=== PATIENT | male | born 1980 | race Hispanic/Latino ===

== ENCOUNTER 2025-06-10 10:23 | Inpatient (IN) | payer SELFPAY ==
[~2025-06-10] VITALS: Ht 167.6 cm; Wt 99.0 kg
[2025-06-10 10:36] LABS: IMMATURE GRANULOCYTE ABSOLUTE 0.16 K/uL (0-1); NUCLEATED RED BLOOD CELLS 0.0 % (0.0-0.19); PLATELET COUNT (AUTO) 313 K/uL (130-400); RED BLOOD CELL COUNT(AUTO) 5.48 MIL/uL (4.50-6.20); RED CELL DISTRIBUTION WIDTH 13.2 % (11.0-15.5); WHITE BLOOD COUNT (AUTO) 23.2 K/uL (4.8-10.8)
[2025-06-10] MEDS: 0.9%NACL 1000ML 1,000 ML IV ONE ×2 (10:38→15:28)
--- NOTE | 2025-06-10 10:40 | EKG ---
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
[2025-06-10 10:49] LABS: CREATININE 1.2 mg/dL (0.5-1.3); GLOMERULAR FILTR. RATE CALC 76.0 mL/min (>90); GLUCOSE,RANDOM 229.0 mg/dL (70-105); SODIUM SERUM 134.0 mmol/L (136-145); UREA NITROGEN, BLOOD 12.0 mg/dL (7-18)
[2025-06-10 10:53] LABS: ASPARTATE AMINOTRANSFERASE 28.0 U/L (10-37); TOTAL PROTEIN, SERUM 8.4 g/dL (6.0-8.3)
[2025-06-10 10:56] LABS: INR 1.04 (0.85-1.15)
--- NOTE | 2025-06-10 12:11 | HMCIMG ---
EXAM: CR Chest, 1 View. CLINICAL HISTORY: cp COMPARISON: None provided. FINDINGS: LUNGS: There is no mass, infiltrate, or acute pulmonary abnormality. Mild bibasilar atelectasis. PLEURAL SPACES: No pleural effusion or pneumothorax. MEDIASTINUM: Cardiac size and mediastinal contours within normal limits. BONES: No aggressive appearing osseous lesion seen. IMPRESSION: No acute cardiopulmonary pathology is evident. /[place]
[2025-06-10 12:18] LABS: AMPHET/METH SCREEN,URINE NEGATIVE (NEGATIVE); BARBITURATE SCREEN, URINE NEGATIVE (NEGATIVE); CANNABINOID SCREEN,URINE NEGATIVE (NEGATIVE); COCAINE SCREEN,URINE NEGATIVE (NEGATIVE)
[2025-06-10] MEDS ORDERED: LACTULOSE 20 GM/30 ML UDCUP PO PRN (15:00)
[2025-06-10 15:08] LABS: ADD UA MICROSCOPIC YES; APPEARANCE,URINE CLEAR (CLEAR); GLUCOSE, URINE (UA) 200 mg/dL (NEGATIVE); LEUKOCYTE ESTERASE ,URINE NEGATIVE Leu/uL (NEGATIVE); NITRATE,URINE NEGATIVE (NEGATIVE); OCCULT BLOOD,URINE SMALL (NEGATIVE)
[2025-06-10 15:12] LABS: SQUAMOUS EPITHELIAL CELL,UR RARE /HPF (0-2)
--- NOTE | 2025-06-10 15:15 | HP ---
[facility] HISTORY AND PHYSICAL Date of Service: Jun 10, 2025 Time of Service: 14:50 HISTORY OF PRESENT ILLNESS: [ ] Admission Date: 06/10/25 CC: chest pain PCP: Self referral This is a 44-year-old male presents in ED with chief complaints of right chest wall pain patient reports inducing vomiting he has a history of GERD . Patient has similar pain a few weeks ago right upper quad patient takes Tums and Maalox comes and goes. We will get a image ultrasound of the right upper quad. Patient's troponins were negative. Patient reports being around or ill contacts. Patient has no history of tachycardia high blood pressure could be triggered by sepsis ER called initiated sepsis workup was done. Patient becomes very anxious diltiazem band was given. Vital signs on arrival temperature 99.73 hours later spiked a temperature 101.3 tachycardia 148 blood pressure 175/54. In ED patient received a total of 20 mg of hydralazine. Labs WBCs 23, CRP 147.8, pro calcitonin 1.26, potassium 3.4 Glucose 229, total bilirubin 1.8 direct bilirubin 0.5 Total protein 8.4 Checks x-ray no acute cardiopulmonary pathology evident Microbiology septic workup was obtained in ED blood cultures urine cultures, influenza a and B and COVID and strep The patient was seen in ED patient appears anxious reports having pain to his right upper quad we will keep him NPO for now we will follow-up on imaging ultrasound. REVIEW OF SYSTEMS A 14 point ROs obtained all relevant positive documented otherwise ROS negative PAST MEDICAL HISTORY: [ ] No history PAST SURGICAL HISTORY: [ ] Negative PAST SOCIAL HISTORY: [ ] Denies smoking tobacco products and drinks alcohol on occasionally FAMILY HISTORY: [ ] Noncontributory Coded Allergies: No Known Drug Allergies (Unverified Allergy, Unknown, 06/10/25) PHYSICAL EXAM GENERAL APPEARANCE: The patient is awake, alert, and oriented, in no acute cardiopulmonary distress. NEUROLOGICAL: Cranial nerves II-XII grossly intact. Motor is 5/5 in bilateral upper and lower extremities proximal to distal. No sensory deficits. HEENT: Face is symmetric. Pupils are equal and reactive. Extraocular movements are intact. NECK: Supple. No JVD. No thyromegaly. No submental, submandibular, pre- /postauricular, occipital or supraclavicular lymphadenopathy. CHEST: Normal chest expansion. No Telemetry. LUNGS: Absence of any rales, rhonchi or any wheezing. CARDIOVASCULAR: Regular. S1 and S2 normal. No appreciable rubs, murmurs or gallops. ABDOMEN: Soft, nontender, and nondistended. There is no rebound, voluntary guarding, or rigidity. : Deferred. No Uriarte. EXTREMITIES: Non-edematous and not cyanotic. No clubbing. Good capillary refill. SKIN: No skin breakdown. Vital Sign (Last 24 Hours) 06/10/25 14:29 Temp 101.3 Pulse 119 Resp 20 B/P (MAP) 160/99 Pulse Ox 98 O2 Delivery Room Air* O2 Flow Rate 0 FiO2 21 LABS: Laboratory: Test 06/10/25 12:02 06/10/25 10:28 Range/Units Urine Opiates Screen NEGATIVE NEGATIVE Urine Barbiturates Screen NEGATIVE NEGATIVE Urine Phencyclidine Screen NEGATIVE NEGATIVE Urine Amphetamines Screen NEGATIVE NEGATIVE Urine Benzodiazepines Screen NEGATIVE NEGATIVE Urine Cocaine Screen NEGATIVE NEGATIVE Urine Marijuana (THC) Screen NEGATIVE NEGATIVE White Blood Count 23.2 H 4.8-10.8 K/uL Red Blood Count 5.48 4.50-6.20 MIL/uL Hemoglobin 16.3 14.0-18.0 g/dL Hematocrit 46.4 42-54 % Mean Corpuscular Volume 84.7 79-99 fL Mean Corpuscular Hemoglobin 29.7 27.0-33.0 pg Mean Corpuscular Hemoglobin Concent 35.1 32.0-36.0 g/dL Red Cell Distribution Width 13.2 11.0-15.5 % Platelet Count 313 130-400 K/uL Mean Platelet Volume 9.2 7.5-10.5 fL Immature Granulocyte % (Auto) 0.7 0-1 % Neutrophils (%) (Auto) 74.1 40.0-77.0 % Lymphocytes (%) (Auto) 16.2 L 21.0-51.0 % Monocytes (%) (Auto) 8.6 3.0-13.0 % Eosinophils (%) (Auto) 0.1 0.0-8.0 % Basophils (%) (Auto) 0.3 0.0-5.0 % Neutrophils # (Auto) 17.2 H 1.8-7.7 K/uL Lymphocytes # (Auto) 3.8 1.0-4.8 K/uL Monocytes # (Auto) 2.0 H 0.1-1.0 K/uL Eosinophils # (Auto) 0.02 0.00-0.70 K/uL Basophils # (Auto) 0.08 0.00-0.20 K/uL Absolute Immature Granulocyte (auto 0.16 0-1 K/uL Nucleated Red Blood Cells 0.0 0.0-0.19 % Prothrombin Time 11.0 9.6-11.6 SEC Prothromb Time International Ratio 1.04 0.85-1.15 Activated Partial Thromboplast Time 26.5 26.3-35.5 SEC D-Dimer Quantitative (PE/DVT) 449 0-500 ng/mL Sodium Level 134 L 136-145 mmol/L Potassium Level 3.4 L 3.5-5.1 mmol/L Chloride Level 97 L 101-111 mmol/L Carbon Dioxide Level 25 21-32 mmol/L Blood Urea Nitrogen 12 7-18 mg/dL Creatinine 1.2 0.5-1.3 mg/dL Glomerular Filtration Rate Calc 76 >90 mL/min Random Glucose 229 H 70-105 mg/dL Total Calcium 9.4 8.5-10.1 mg/dL Total Bilirubin 1.8 H 0.2-1.0 mg/dL Direct Bilirubin 0.5 H 0.0-0.3 mg/dL Aspartate Amino Transf (AST/SGOT) 28 10-37 U/L Alanine Aminotransferase (ALT/SGPT) 47 12-78 U/L Alkaline Phosphatase 100 50-136 U/L Troponin I High Sensitivity 6 4-75 ng/L B-Type Natriuretic Peptide 50 0-100 pg/mL Total Protein 8.4 H 6.0-8.3 g/dL Albumin 4.3 3.5-5.0 g/dL Current Medications Medications (Trade) Dose Ordered Sig/Oj Route PRN Reason Start Time Stop Time Status Last Admin Dose Admin Hydralazine HCl (APRESOLine 20MG INJ) 10 mg ONCE IV 06/10/25 14:00 06/10/25 13:57 DC DIAGNOSTICS / RADIOLOGY: [ ] REASON: cp ORDERING PHYSICIAN: BERNARDA RAY MD PROCEDURE: CXR1VW - CHEST 1VW EXAM: CR Chest, 1 View. CLINICAL HISTORY: cp COMPARISON: None provided. FINDINGS: LUNGS: There is no mass, infiltrate, or acute pulmonary abnormality. Mild bibasilar atelectasis. PLEURAL SPACES: No pleural effusion or pneumothorax. MEDIASTINUM: Cardiac size and mediastinal contours within normal limits. BONES: No aggressive appearing osseous lesion seen. IMPRESSION: No acute cardiopulmonary pathology is evident. /[place] ASSESSMENT: Acute respiratory failure with hypoxia requiring oxygen supplemental POA Sepsis ( temperature 101.3, leukocytosis 23.2 Tachycardia 148POA hypertensive urgency POA Atypical chest pain most likely musculoskeletal pain POA Elevated d dimer suspecting PE POA Intractable abdominal pain right upper quad POA Severe GERD electrolytes derangement: hypokalemia POA hyperglycemia POA Obesity BMI 35.8 POA Anxiety requiring diazepam POA PLAN: [ ] Admit:medical surgical floor condition: Guarded Status: Full Code Diet NPO for now we ice chips IVF: NS at 75 ml/hr: ( Received 2 liters in ED) Consultants ID Antibiotics: Cefepime2 g every12 hours and vancomycin1 g every24 hours. Microbiology blood culture urine cultures in process We will continue to monitor inflammatory markers every other day Imaging right upper quad ultrasound Cardiac enzymes x3 Labs cbc, cmp, mag+ TSH lipid panel Replace electrolytes as needed as per protocol to keep potassium above 4.0 magnesium 2.0. Home medications pending to be reviewed by RN nurse. PRN: MEDICATIONS Tylenol 650 mg po every 4 hrs for fever zofran 4 mg IV every 6 hrs for n/v Hydralazine 5 mg IV every 4 hrs systolic pressure > 160 bowel regiment: lactulose 20 gm PO BID PRN constipation Pain management: Morphine2 mg IV every4 hours as needed for pain. Anxiety diazepam5 mg IV push x1 Supportive measures: DVT ppx, GI ppx all questions answered time spent: > 35 min Supervising MD: Dr. Opal Dickson c/d This document was generated in part using voice recognition software, occasional wrong word or sound alike substitutions may have occurred due to the inherent limitations of voice recognition software. Read the chart carefully and recognize using context, where the substitutions have occurred. Although every effort was made to edit the content, crusher loader operator and typing errors may occur ATTESTATION BY PHYSICIAN I have seen and examined the patient. I reviewed the documentation, medical decision making, and treatment plan as noted by the mid-level provider above. I agree with the findings and plan of care. DONNA CARY MD ATTESTATION BY PHYSICIAN I have seen and examined the patient. I reviewed the documentation, medical decision making, and treatment plan as noted by the mid-level provider above. I agree with the findings and plan of care. DONNA CARY MD, ELIZABETH NP Jun 10, 2025 15:15
[2025-06-10] MEDS ORDERED: MAGNESIUM 2GM PREMIX 50ML 50 ML IV PRN (15:30)
[2025-06-10] MEDS ORDERED: PoTASSium chl 10% ELIXIR 20MEQ 20 MEQ/15 ML UDCUP PO PRN (15:30)
--- NOTE | 2025-06-10 15:39 | ERN ---
ED Note History of Present Illness Stated Complaint: SEPSIS Chief Complaint: Chest Pain Time Seen by MD: 10:24 Dictation: 44-year-old male presenting to the emergency department with right-sided chest pain elevated heart rate and diaphoresis, patient was transported by EMS reports that he feels pressure-like sensation to the right side of the chest. Allergies: Coded Allergies: No Known Drug Allergies (Unverified Allergy, Unknown, 06/10/25) Past Medical History Past Medical History: No Pertinent History Surgical History: None Review of System Dictation Constitutional: Negative for fever,chills, and weight loss Eyes: Negative for injury, pain,redness, and discharge ENT: Negative for injury,pain or swelling Cardiovascular: Per HPI Abdomen/GI: Negative for abdominal pain, nausea, vomiting, diarrhea, and constipation Back: Negative for injury and pain : Negative for injury, bleeding and discharge MS/Extremity: Negative for injury and deformity Skin: Negative for rash, and discoloration Neuro: Negative for headache, weakness, numbness, tingling, and seizure Psych: Negative for suicide ideation, homicidal ideation, and hallucinations Initial Vital Sign VS Vital Signs Date Time Temp Pulse Resp B/P (MAP) Pulse Ox O2 Delivery O2 Flow Rate FiO2 06/10/25 10:24 99.7 148 28 175/54 95 Room Air 0 06/10/25 10:49 28 Physical Exam Dictation General: awake, alert, appears uncomfortable, diaphoretic Head/Face: Normocephalic, atraumatic Eyes: PERRL, EOMI, vision at baseline ENT: oral cavity clear, TMs clear, no signs of infection Neck: Trachea midline, supple, no nuchal rigidity Cardiovascular: Tachycardic, normal S1/S2, No MRGs, no JVD Respiratory: CTAB, no respiratory distress, No rales or wheezes Abdomen: Soft, non-tender, non-distended, normal bowel sounds, no guarding or rebound. Skin: Warm, dry, normal turgor, no rash MS/Extremity: Pulses equal, no cyanosis, neurovascular intact, FROM Neuro: COAx4, GCS 15, strength 5/5, CN 2-12 intact, normal cerebellar exam, normal gait, Psych: Normal behavior, mood, and affect normal Results (Laboratory/Radiology) Laboratory/Radiology Laboratory Tests Test 06/10/25 10:28 06/10/25 12:02 06/10/25 12:08 06/10/25 15:05 White Blood Count 23.2 K/uL (4.8-10.8) H Red Blood Count 5.48 MIL/uL (4.50-6.20) Hemoglobin 16.3 g/dL (14.0-18.0) Hematocrit 46.4 % (42-54) Mean Corpuscular Volume 84.7 fL (79-99) Mean Corpuscular Hemoglobin 29.7 pg (27.0-33.0) Mean Corpuscular Hemoglobin Concent 35.1 g/dL (32.0-36.0) Red Cell Distribution Width 13.2 % (11.0-15.5) Platelet Count 313 K/uL (130-400) Mean Platelet Volume 9.2 fL (7.5-10.5) Immature Granulocyte % (Auto) 0.7 % (0-1) Neutrophils (%) (Auto) 74.1 % (40.0-77.0) Lymphocytes (%) (Auto) 16.2 % (21.0-51.0) L Monocytes (%) (Auto) 8.6 % (3.0-13.0) Eosinophils (%) (Auto) 0.1 % (0.0-8.0) Basophils (%) (Auto) 0.3 % (0.0-5.0) Neutrophils # (Auto) 17.2 K/uL (1.8-7.7) H Lymphocytes # (Auto) 3.8 K/uL (1.0-4.8) Monocytes # (Auto) 2.0 K/uL (0.1-1.0) H Eosinophils # (Auto) 0.02 K/uL (0.00-0.70) Basophils # (Auto) 0.08 K/uL (0.00-0.20) Absolute Immature Granulocyte (auto 0.16 K/uL (0-1) Nucleated Red Blood Cells 0.0 % (0.0-0.19) Prothrombin Time 11.0 SEC (9.6-11.6) Prothromb Time International Ratio 1.04 (0.85-1.15) Activated Partial Thromboplast Time 26.5 SEC (26.3-35.5) D-Dimer Quantitative (PE/DVT) 449 ng/mL (0-500) Sodium Level 134 mmol/L (136-145) L Potassium Level 3.4 mmol/L (3.5-5.1) L Chloride Level 97 mmol/L (101-111) L Carbon Dioxide Level 25 mmol/L (21-32) Blood Urea Nitrogen 12 mg/dL (7-18) Creatinine 1.2 mg/dL (0.5-1.3) Glomerular Filtration Rate Calc 76 mL/min (>90) Random Glucose 229 mg/dL (70-105) H Total Calcium 9.4 mg/dL (8.5-10.1) Total Bilirubin 1.8 mg/dL (0.2-1.0) H Direct Bilirubin 0.5 mg/dL (0.0-0.3) H Aspartate Amino Transf (AST/SGOT) 28 U/L (10-37) Alanine Aminotransferase (ALT/SGPT) 47 U/L (12-78) Alkaline Phosphatase 100 U/L (50-136) Troponin I High Sensitivity 6 ng/L (4-75) B-Type Natriuretic Peptide 50 pg/mL (0-100) Total Protein 8.4 g/dL (6.0-8.3) H Albumin 4.3 g/dL (3.5-5.0) Urine Opiates Screen NEGATIVE (NEGATIVE) Urine Barbiturates Screen NEGATIVE (NEGATIVE) Urine Phencyclidine Screen NEGATIVE (NEGATIVE) Urine Amphetamines Screen NEGATIVE (NEGATIVE) Urine Benzodiazepines Screen NEGATIVE (NEGATIVE) Urine Cocaine Screen NEGATIVE (NEGATIVE) Urine Marijuana (THC) Screen NEGATIVE (NEGATIVE) Urine Color YELLOW (YELLOW) Urine Appearance CLEAR (CLEAR) Urine pH 5.5 (5.0-8.0) Urine Specific [place] 1.019 (1.001-1.031) Urine Protein 30 mg/dL (NEGATIVE) H Urine Glucose (UA) 200 mg/dL (NEGATIVE) H Urine Ketones 10 mg/dL (NEGATIVE) H Urine Occult Blood SMALL (NEGATIVE) H Urine Nitrate NEGATIVE (NEGATIVE) Urine Bilirubin NEGATIVE mg/dL (NEGATIVE) Urine Urobilinogen 0.2 mg/dL (0.2-1.0) Urine Leukocyte Esterase NEGATIVE Brett/uL Urine RBC 0-1 /HPF (0-1) Urine WBC 2-5 /HPF (0-1) H Urine Squamous Epithelial Cells RARE /HPF (0-2) Urine Bacteria None /HPF (None Seen) Urine Hyaline Casts 2-5 /LPF (0-1 /LPF) H Lactic Acid Level 2.3 mmol/L (0.8-2.5) C-Reactive Protein, Quantitative 147.80 mg/L (0.5-3.0) H Labs Reviewed?: Yes EKG Comment: Heart rate 129, sinus tachycardia normal intervals no STEMI or STEMI equivalent ED Course ED Course Orders Procedure Category Date Status Time 12 Lead Ekg Tracing- EKG 06/10/25 Complete Technical 10:25 Basic Metabolic Panel LAB 06/10/25 Complete 10:25 Cbc With Differential LAB 06/10/25 Complete 10:25 Hepatic Function Panel LAB 06/10/25 Complete 10:25 Drug Screen Urine LAB 06/10/25 Complete 10:25 Pt And Ptt LAB 06/10/25 Complete 10:25 Troponin I High LAB 06/10/25 Complete Sensitivity 10:25 Chest 1vw RAD 06/10/25 Resulted 10:25 B-Type Natriuretic LAB 06/10/25 Complete Peptide 10:25 Diazepam 5 Mg/Ml 2 Ml PHA 06/10/25 Complete Syg (Valium 5 Mg/M 10:31 Diazepam 5 Mg/Ml 2 Ml PHA 06/10/25 Complete Syg (Valium 5 Mg/M 11:00 0.9%Nacl 1000ml (Ns PHA 06/10/25 Complete 1000ml) 10:35 D-Dimer LAB 06/10/25 Complete 10:35 Hydralazine 20mg Inj PHA 06/10/25 Complete (Apresoline 20mg In 14:00 Hydralazine 20mg Inj PHA 06/10/25 Complete (Apresoline 20mg In 14:00 Influenza Type A & B, LAB 06/10/25 Logged Rapid 14:35 Lactic Acid LAB 06/10/25 Complete 14:35 Blood Cult TENZIN 06/10/25 Logged 14:35 Urinalysis Profile LAB 06/10/25 Complete 14:35 Covid19 (Sars Antigen LAB 06/10/25 Logged Rapid) 14:35 0.9%Nacl 1000ml (Ns PHA 06/10/25 Complete 1000ml) 15:00 Ceftriaxone 2gm Vial PHA 06/10/25 Complete (Rocephin 2gm Inj) 15:00 Admit Orders ADM 06/10/25 Transmitted 14:52 Acetaminophen 325 Tab PHA 06/10/25 Complete (Tylenol 325mg Tab 15:00 Acetaminophen 325 Tab PHA 06/10/25 In Process (Tylenol 325mg Tab 15:00 Famotidine 20mg Tab PHA 06/10/25 In Process (Pepcid 20mg Tab) 21:00 Lactulose 20 Gm/30 Ml PHA 06/10/25 In Process Udcup (Constulose 15:00 0.9%Nacl 1000ml (Ns PHA 06/10/25 In Process 1000ml) 15:00 Cefepime Hcl 2 Gm PHA 06/10/25 In Process Vial (Maxipime 2 Gm Vi 15:00 Hydralazine 20mg Inj PHA 06/10/25 In Process (Apresoline 20mg In 15:00 Group B Strep Pcr TENZIN 06/10/25 Logged 15:09 Procalcitonin LAB 06/10/25 In Process 15:09 Crp Quantitative LAB 06/10/25 Complete 15:09 Cbc With Differential LAB 06/11/25 Verified 04:00 Comprehensive LAB 06/11/25 Verified Metabolic Panel 04:00 Magnesium LAB 06/11/25 Verified 04:00 Initiate Po MIAH 06/10/25 In Process Hypokalemia Protoc 15:11 Potassium Chloride PHA 06/10/25 In Process 20meq/100ml ([place] 15:30 Potassium Chl 10% PHA 06/10/25 In Process Elixir 20meq (Kcl 10% 15:30 Potassium Chloride PHA 06/10/25 In Process 20meq Er (K-Dur/Klor- 15:30 Notify Physician If CPOE 06/10/25 Transmitted There Is 15:11 Notify Md On The Next CPOE 06/10/25 Transmitted 15:11 Notify Md On The CPOE 06/10/25 Transmitted Next(Cont.) 15:11 Magnesium 2gm Premix PHA 06/10/25 In Process 50ml (Magnesium 2gm 15:30 Initiate MIAH 06/10/25 In Process Hyperglycemia Protoco 15:11 Insulin Regular, PHA 06/10/25 In Process Human 3ml (Humulin R 16:30 Ct Chest Pe Protocol CT 06/10/25 Logged Wwo Cont 15:12 Vancomycin 1.5 Gm/250 PHA 06/10/25 In Process Ml Bag (Vancomycin 15:30 Vancomycin 1g/250ml PHA 06/11/25 In Process Kit (Vancomycin 1g/2 06:00 Vancomycin Trough LAB 06/12/25 Verified 05:00 Vital Signs Date Time Temp Pulse Resp B/P (MAP) Pulse Ox O2 Delivery O2 Flow Rate FiO2 06/10/25 15:31 101.3 06/10/25 14:29 101.3 119 20 160/99 98 Room Air* 0 21 06/10/25 13:48 100.0 108 20 162/103 95 Room Air* 0 21 06/10/25 10:49 99.9 114 20 167/93 94 Nasal Cannula* 2 28 06/10/25 10:24 99.7 148 28 175/54 95 Room Air 0 Medical Decision Making MDM MDM: Differential diagnosis: Rationale: Tests considered and ordered secondary to shared decision making include: labs, ECG and radiology Previous outside records reviewed: Old ER visits. Risk of complication and/or morbidity or mortality of patient management: None Medications-Per medication reconciliation Need for hospitalization: Patient does meet criteria for hospitalization. Need for emergency major/minor surgery: No There are no social concerns with this patient. Prescription drug management Prescriptions will include symptomatic care Patient's prior external medical records from other ER visits were reviewed by me as indicated. Prior testing and results from previous visits were reviewed. Prior tests were taken into account with medical decision making and resource utilization, independent historian/historians were used to obtain complete medical history. I independently interpreted the test that were performed, results were reviewed by me and considered findings on radiology if ordered. Medical management and examination interpretation discussions were had by me with other qualified healthcare professionals as indicated for the patient's care. 44-year-old male with tachycardia and chest pain initial workup was negative however then patient's spiked a fever and a leukocytosis given fluid bolus antibiotics and admitting for sepsis workup. Critical Care Note Comment(s) Total critical care time was 33 minutes. Excluding time for procedures. Management of critically ill patient with concern for acute decompensation. Management included interpretation of laboratory values and imaging, hemodynamics, time for consultation with consultants and admitting physician. DX & DISP Disposition: Inpatient Departure Impression: Primary Impression: Sepsis Condition: Stable Referrals: SELF,REFERRAL (PCP) BERNARDA RAY MD Jun 10, 2025 15:39
[2025-06-10] MEDS ORDERED: IOHEXOL-350 75 ML VIAL IV ONE (15:48)
[2025-06-10 16:23] LABS: RAPID GROUP A STREP negative (NEGATIVE)
[2025-06-10] MEDS: PoTASSium chloRIDE 20MEQ ER 20 MEQ ERTAB PO PRN (16:26)
--- NOTE | 2025-06-10 16:28 | HMCIMG ---
EXAM: CTA Chest with and without Intravenous Contrast for PE evaluation CLINICAL HISTORY: PE TECHNIQUE: Axial CTA images of the chest with and without intravenous contrast using a pulmonary embolism protocol. Multiplanar reconstructed images were created and reviewed. CONTRAST: None. was administered without incident. COMPARISON: None provided. FINDINGS: PULMONARY ARTERIES: Suboptimal bolus. No evidence of central embolism AORTA: There is no evidence for aneurysm or dissection of the thoracic aorta. LUNGS: Findings suggesting pulmonary venous congestion. Increased central alveolar markings with interlobular septal prominence. No consolidation PLEURAL SPACES: No pleural effusion seen. No pneumothorax evident. HEART: Normal heart size. No significant pericardial effusion. LYMPH NODES: No lymphadenopathy is evident. BONES: No focal osseous abnormality or acute fracture. UPPER ABDOMEN: Gallstones with inflammatory gallbladder changes. Right upper quadrant ultrasound recommended IMPRESSION: 1. Suboptimal bolus. No evidence of central embolism 2. Findings suggesting pulmonary venous congestion 3. Gallstones with inflammatory gallbladder changes. Right upper quadrant ultrasound recommended /[place]
[2025-06-10 16:33] LABS: COVID19 (SARS ANTIGEN RAPID) PRESUMPTIVE NEGATIVE (NEGATIVE)
[2025-06-10 16:34] LABS: INFLUENZA TYPE A Negative For Type A (NEGATIVE); INFLUENZA TYPE B Negative For Type B (NEGATIVE)
[2025-06-10] MEDS: VANCOMYCIN 1.5 GM/250 ML BAG 250 ML IV SCH (17:22)
[2025-06-10] MEDS: 0.9%NACL 1000ML 1,000 ML IV SCH (19:59)
[2025-06-10 20:06] VITALS: TEMP 99.8
[2025-06-10] MEDS ORDERED: FAMOTIDINE 20MG TAB PO SCH (21:00)
[2025-06-10] MEDS: FAMOTIDINE 20MG VIAL IV SCH (21:15)
--- NOTE | 2025-06-10 21:29 | NUR ---
PATIENT REPORTS HE DOES NOT TAKE ANY PRESCRIBED MEDICATIONS
[2025-06-10 22:00] VITALS: BP 161/104; PULSE 116; RESP 20; TEMP 98.2
--- NOTE | 2025-06-10 22:00 | NUR ---
admit admit to room 409 via stretcher from er, patient awake alert, ox3, no sob, no c/o pain at this time , ivf infusing well, no family at bedside, teach patient plan of care and expected outcome
[2025-06-11] VITALS (8 sets, daily range): BP systolic 146–180; BP diastolic 89–125; PULSE 88–106; RESP 16–20; TEMP 97.5–99.1; O2SAT 95
[2025-06-11 05:13] LABS: IMMATURE GRANULOCYTE ABSOLUTE 0.18 K/uL (0-1); NUCLEATED RED BLOOD CELLS 0.0 % (0.0-0.19); PLATELET COUNT (AUTO) 268 K/uL (130-400); RED BLOOD CELL COUNT(AUTO) 5.17 MIL/uL (4.50-6.20); RED CELL DISTRIBUTION WIDTH 13.9 % (11.0-15.5); WHITE BLOOD COUNT (AUTO) 13.9 K/uL (4.8-10.8)
[2025-06-11 05:42] LABS: ASPARTATE AMINOTRANSFERASE 34.0 U/L (10-37); CREATININE 0.9 mg/dL (0.5-1.3); GLOMERULAR FILTR. RATE CALC 107.0 mL/min (>90); GLUCOSE,RANDOM 173.0 mg/dL (70-105); LDL DIRECT 76.0 mg/dL (0-99); SODIUM SERUM 136.0 mmol/L (136-145); TOTAL PROTEIN, SERUM 7.7 g/dL (6.0-8.3); UREA NITROGEN, BLOOD 10.0 mg/dL (7-18)
[2025-06-11] MEDS: VANCOMYCIN KIT 1 GM/250 ML IV.KIT IV SCH (05:45)
--- NOTE | 2025-06-11 06:56 | HMCIMG ---
EXAMINATION: ULTRASOUND OF THE ABDOMEN WITH COLOR DOPPLER. CLINICAL HISTORY: Right upper quadrant pain. COMPARISON: None provided. TECHNIQUE: Real-time grayscale ultrasound images of the abdomen. In addition, color Doppler is medically necessary to perform in order to evaluate vascularity and blood flow. FINDINGS: Study limited by bowel gas. Liver: Enlarged in caliber; the right hepatic lobe measures 18.3 cm in the craniocaudal dimension. There is increased echogenicity of the hepatic parenchyma. There is no focal hepatic abnormality or intrahepatic biliary ductal dilatation. There is normal spectral Doppler of the main portal vein (PSV-22 cm/s). Gallbladder: Wall thickened (0.5 cm). No hyperemia. There is trace pericholecystic free fluid. There are few calculi largest measure 1.0 cm. There is sludge. Common bile duct is normal in caliber, measuring 0.0 cm. Spleen is mildly enlarged in caliber and measures 12.2 cm in craniocaudal dimension. No focal lesions. Pancreas: Obscured by bowel gas. The kidneys are normal in caliber; the right kidney measures 11.5 x 6.3 x 5.9 cm in its craniocaudal, AP, and transverse dimensions, and the left kidney measures 11.5 x 5.7 x 5.2 cm in its craniocaudal, AP, and transverse dimensions. There is normal renal cortical thickness, and cortical echogenicity. There is no renal calculus. There is no hydronephrosis. Aorta and inferior vena cava are obscured by bowel gas. IMPRESSION: Hepatosplenomegaly with hepatic steatosis. Gallstones with mild gallbladder wall thickening and minimal pericholecystic fluid. Recommend HIDA scan. /[place]
--- NOTE | 2025-06-11 06:56 | HMCIMG ---
EXAMINATION: SPECTRAL DOPPLER ULTRASOUND EXAMINATION OF THE BILATERAL LOWER EXTREMITY VEINS. CLINICAL HISTORY: DVT. COMPARISON: None provided. TECHNIQUE: Real-time ultrasound scan of the veins of the bilateral lower extremity with color Doppler flow, spectral waveform analysis and compression. FINDINGS: DEEP VEINS: The common femoral, superficial femoral, deep femoral, popliteal, and posterior tibial veins are echolucent and compressible. There is normal color Doppler flow throughout. The visualized calf veins appear patent. SUPERFICIAL VEINS: The visualized greater saphenous veins are echolucent and compressible. SOFT TISSUES: No popliteal fossa cyst or other abnormalities. IMPRESSION: No deep venous thrombosis evident in the bilateral lower extremity examination. /[place]
--- NOTE | 2025-06-11 12:14 | NUR ---
DCP:HOME Pt currently lives at home with his girlfriend/common-law . Pt does not have any DME, home health, or provider services. Pt states that he is able to complete ADLs independently. Pt does not have a PCP, SW provided patient with community resources. At [place] pt will want to go home and family can assist with transportation. Addendum: 06/11/25 at 1216 by BART KUMAR SS Amended: Links added.
--- NOTE | 2025-06-11 12:35 | NUR ---
CONSULT CALLED DR. DIOP AT 1231. HE CALLED BACK AT 1233 AND SAID THAT HE WILL BE SEEING PATIENT TOMORROW DUE TO JACQUE ALREADY ROUNDING. ASKED FOR PATIENT CONDITION I TOLD HIM HE'S DOING WELL OVERALL AND HAS SCHEDULED HIDA SCAN TO BE DONE TODAY. HE WILL GO OVER RESULTS TOMORROW WHEN HE SEES PATIENT.
--- NOTE | 2025-06-11 13:00 | CONS ---
GASTROENTEROLOGY CONSULTATION NOTE Date of Consultation: Jun 11, 2025 Time of Consultation: 12:58 History of Present Illness: [This is a 54-year-old male who was brought via EMS to the Emergency with complaints of right-sided chest pain, elevated heart rate and diaphoresis. Patient reported history of GERD. Initial WBC of 23.2 has trended down to 13.9. Hemoglobin 15.4, platelets 268 today. Chemistry significant for potassium of 3.3, glucose 173, hemoglobin A1c of 6.6, total bilirubin 1.4, AST, ALT and alkaline phos are normal. Albumin 3.6. Urine positive for occult blood. CT of abdomen pelvis significant for hepatosplenomegaly with hepatic steatosis. Gallstones with mild gallbladder wall thickening and minimal pericholecystic fluid. HIDA scan has been ordered and is pending. On exam patient is resting in stretcher, in no acute distress. Respirations are unlabored. Bilateral breath sounds are clear. Abdomen is soft, nontender and nondistended. Patient denies having any abdominal pain. Patient reports drinking eight beers per day on weekends every other weekend for the past three years. CT scans reviewed with patient, and recommended abstaining from alcohol intake. HIDA scan pending. ] Review of Systems: CONSTITUTIONAL: No malaise or change in sensation of wellbeing. ENMT: No rhinorrhea, otorrhea, sinus pain, ear ache. CARDIOVASCULAR: No angina, palpitations, orthopnea or paroxysmal dyspnea. RESPIRATORY: No SOB. GASTROINTESTINAL: No abdominal pain, nausea, vomiting, diarrhea, hematemesis, melena or change in the patient's habitual bowel movements consistency/number. GENITOURINARY: No dysuria, hematuria or change in bladder continence. MUSCULOSKELETAL: No new muscle pain or decrease in muscular strength. No new joint swelling, redness or tenderness. SKIN: No new rash. Past Medical History: No history PAST SURGICAL HISTORY: Negative PAST SOCIAL HISTORY: Denies smoking tobacco products and drinks eight beers per day every other weekend the past three years Coded Allergies: No Known Drug Allergies (Unverified Allergy, Unknown, 06/10/25) Physical Exam: GEN: Awake, alert, oriented in person, time and place, and in no acute distress. HEENT No rhinorrhea. Oral pharyngeal mucosa is pink, moist and within normal limits. Neck is supple. CHEST: Inspection, palpation of the chest were unremarkable. Lung auscultation revealed normal breath sounds bilaterally. CARDIAC: PMI is within normal limits. Heart sounds are regular. ABD: Soft, non-tender and not distended. No peritoneal signs on palpation. No organomegaly. Normal bowel sounds. EXT: No cyanosis or clubbing. No edema. SKIN: Intact. No rashes. JOINTS: No evidence of synovitis or acute arthritis. NEURO: Alert and oriented to name, place and person. No focal motor deficits. Normal speech. Strength is normal. Vital Sign (Last 24 Hours) 06/10/25 06/11/25 22:00 08:00 Temp 97.9 Pulse 93 Resp 18 B/P (MAP) 158/101 Pulse Ox 95 O2 Delivery Room Air O2 Flow Rate 0 FiO2 21 Intake & Output (last 24hrs) 06/10/25 06/10/25 06/11/25 15:00 23:00 07:00 Intake Total 1250.0 ml Balance 1250.0 ml Laboratory: [ ] Laboratory: Test 06/11/25 11:12 06/11/25 04:38 06/10/25 20:45 06/10/25 15:55 Range/Units Whole Blood Glucose 150 H 70-110 MG/DL White Blood Count 13.9 #H 4.8-10.8 K/uL Red Blood Count 5.17 4.50-6.20 MIL/uL Hemoglobin 15.4 14.0-18.0 g/dL Hematocrit 43.9 42-54 % Mean Corpuscular Volume 84.9 79-99 fL Mean Corpuscular Hemoglobin 29.8 27.0-33.0 pg Mean Corpuscular Hemoglobin Concent 35.1 32.0-36.0 g/dL Red Cell Distribution Width 13.9 11.0-15.5 % Platelet Count 268 130-400 K/uL Mean Platelet Volume 9.6 7.5-10.5 fL Immature Granulocyte % (Auto) 1.3 H 0-1 % Neutrophils (%) (Auto) 84.7 H 40.0-77.0 % Lymphocytes (%) (Auto) 6.5 L 21.0-51.0 % Monocytes (%) (Auto) 7.1 3.0-13.0 % Eosinophils (%) (Auto) 0.0 0.0-8.0 % Basophils (%) (Auto) 0.4 0.0-5.0 % Neutrophils # (Auto) 11.8 H 1.8-7.7 K/uL Lymphocytes # (Auto) 0.9 L 1.0-4.8 K/uL Monocytes # (Auto) 1.0 0.1-1.0 K/uL Eosinophils # (Auto) 0.00 0.00-0.70 K/uL Basophils # (Auto) 0.05 0.00-0.20 K/uL Absolute Immature Granulocyte (auto 0.18 0-1 K/uL Nucleated Red Blood Cells 0.0 0.0-0.19 % White Cell Morphology Comment See comments Sodium Level 136 136-145 mmol/L Potassium Level 3.3 L 3.5-5.1 mmol/L Chloride Level 102 101-111 mmol/L Carbon Dioxide Level 24 21-32 mmol/L Blood Urea Nitrogen 10 7-18 mg/dL Creatinine 0.9 0.5-1.3 mg/dL Glomerular Filtration Rate Calc 107 >90 mL/min Random Glucose 173 H 70-105 mg/dL Hemoglobin A1c 6.6 H 4.0-6.0 % Estimated Average Glucose (eAG) 143 H 70-126 mg/dL Total Calcium 8.6 8.5-10.1 mg/dL Magnesium Level 2.30 1.80-2.40 mg/dL Total Bilirubin 1.4 #H 0.2-1.0 mg/dL Aspartate Amino Transf (AST/SGOT) 34 10-37 U/L Alanine Aminotransferase (ALT/SGPT) 56 12-78 U/L Alkaline Phosphatase 90 50-136 U/L Total Protein 7.7 6.0-8.3 g/dL Albumin 3.6 3.5-5.0 g/dL Triglycerides Level 52 30-200 mg/dL Cholesterol Level 151 <200 mg/dL LDL Cholesterol 76 0-99 mg/dL HDL Cholesterol 60 29-71 mg/dL Thyroid Stimulating Hormone (TSH) 0.71 0.36-3.74 uIU/mL Lactic Acid Level 2.3 0.8-2.5 mmol/L Influenza Type A Antigen Negative For Type A NEGATIVE Influenza Type B Antigen Negative For Type B NEGATIVE SARS-CoV-2 Antigen (Rapid) PRESUMPTIVE NEGATIVE NEGATIVE Group A Streptococcus Rapid negative NEGATIVE Test 06/10/25 15:05 06/10/25 12:08 06/10/25 12:02 06/10/25 10:28 Range/Units C-Reactive Protein, Quantitative 147.80 H 0.5-3.0 mg/L Procalcitonin 1.26 H 0.05-0.5 ng/mL Urine Color YELLOW YELLOW Urine Appearance CLEAR CLEAR Urine pH 5.5 5.0-8.0 Urine Specific Gabbs 1.019 1.001-1.031 Urine Protein 30 H NEGATIVE mg/dL Urine Glucose (UA) 200 H NEGATIVE mg/dL Urine Ketones 10 H NEGATIVE mg/dL Urine Occult Blood SMALL H NEGATIVE Urine Nitrate NEGATIVE NEGATIVE Urine Bilirubin NEGATIVE NEGATIVE mg/dL Urine Urobilinogen 0.2 0.2-1.0 mg/dL Urine Leukocyte Esterase NEGATIVE NEGATIVE Brett/uL Urine RBC 0-1 0-1 /HPF Urine WBC 2-5 H 0-1 /HPF Urine Squamous Epithelial Cells RARE 0-2 /HPF Urine Bacteria None None Seen /HPF Urine Hyaline Casts 2-5 H 0-1 /LPF /LPF Urine Opiates Screen NEGATIVE NEGATIVE Urine Barbiturates Screen NEGATIVE NEGATIVE Urine Phencyclidine Screen NEGATIVE NEGATIVE Urine Amphetamines Screen NEGATIVE NEGATIVE Urine Benzodiazepines Screen NEGATIVE NEGATIVE Urine Cocaine Screen NEGATIVE NEGATIVE Urine Marijuana (THC) Screen NEGATIVE NEGATIVE Prothrombin Time 11.0 9.6-11.6 SEC Prothromb Time International Ratio 1.04 0.85-1.15 Activated Partial Thromboplast Time 26.5 26.3-35.5 SEC D-Dimer Quantitative (PE/DVT) 449 0-500 ng/mL Direct Bilirubin 0.5 H 0.0-0.3 mg/dL Troponin I High Sensitivity 6 4-75 ng/L B-Type Natriuretic Peptide 50 0-100 pg/mL Current Medications Medications (Trade) Dose Ordered Sig/Oj Route PRN Reason Start Time Stop Time Status Last Admin Dose Admin Acetaminophen (TYLenol 325MG TAB) 650 mg Q4H PRN PO TEMPERATURE GREATER THAN 101.5 06/10/25 15:00 07/10/25 14:59 Cefepime HCl (MAXipime 2 gm vial) 2 gm Q12H IVPB 06/10/25 15:00 06/20/25 14:59 06/11/25 02:45 2 GM Famotidine (Pepcid 20mg Vial) 20 mg BID IV 06/10/25 21:30 07/10/25 21:29 06/11/25 08:23 20 MG Famotidine (Pepcid 20mg Tab) 20 mg BID PO 06/10/25 21:00 06/10/25 21:04 DC Hydralazine HCl (APRESOLine 20MG INJ) 10 mg ONCE IV 06/10/25 14:00 06/10/25 13:57 DC Hydralazine HCl (APRESOLine 20MG INJ) 10 mg Q4H PRN IV ADMINISTER FOR SBP > 160 06/10/25 15:00 07/10/25 14:59 06/11/25 03:13 10 MG Insulin Human Regular (humuLIN R 100 UNIT/ML 3ML) INSULIN SLIDING SCAL... ACHS SQ 06/10/25 16:30 07/10/25 16:29 06/10/25 17:19 4 UNIT Lactulose (Constulose 20gm/ 30ml Udcup) 20 gm BID PRN PO CONSTIPATION 06/10/25 15:00 07/10/25 14:59 Magnesium Sulfate 50 ml @ 0 mls/hr PROTOCOL PRN IV low mag level 06/10/25 15:30 07/10/25 15:29 Morphine Sulfate (morPHINE 2MG SYG) 2 mg Q4H PRN IVP SEVERE PAIN (7-10) 06/10/25 16:00 06/17/25 15:59 Potassium Chloride 100 ml @ 100 mls/hr AD PRN IV POTASSIUM PROTOCOL 06/10/25 15:30 07/10/25 15:29 Potassium Chloride (K-Dur/Klor-Con 20meq) 20 meq AD PRN PO POTASSIUM PROTOCOL 06/10/25 15:30 07/10/25 15:29 06/10/25 16:26 20 MEQ Potassium Chloride (KCl 10% Elixir 20meq/15ml) 20 meq AD PRN PO POTASSIUM PROTOCOL 06/10/25 15:30 07/10/25 15:29 Sodium Chloride 1,000 ml @ 75 mls/hr [id number] IV 06/10/25 15:00 07/10/25 14:59 06/10/25 19:59 75 MLS/HR Vancomycin HCl 250 ml @ 125 mls/hr ONCE IV 06/10/25 15:30 06/10/25 21:30 DC 06/10/25 17:22 125 MLS/HR Vancomycin HCl (Vancomycin 1g/ 250ml Kit) 1 gm Q8H6 IV 06/11/25 06:00 06/21/25 05:59 06/11/25 05:45 1 GM Diagnostics / Radiology: [COPY/PASTE HERE IF NO REPORTS PLEASE DELETE SECTION] Assessment: Abdominal pain [ Hepatosplenomegaly Cholelithiasis Alcohol abuse] Plan: Case discussed with Dr. Whitt [NPO Recommend Gi prophylaxis with Protonix IV bid HIDA scan pending Liver serologies ordered Please call with questions, concerns, and change in clinical status. Thank you for this consult. ] [employer] Jun 11, 2025 13:00
--- NOTE | 2025-06-11 14:30 | PN ---
[facility] PROGRESS NOTE Date of Service: Jun 11, 2025 Time of Service: 13:53 SUBJECTIVE: The patient is a 44-year-old male with a past medical history of GERD. The patient presented to the ER with complaint of right-sided chest and upper quadrant pain since 2 days, with increased in severity on 06/10. He rated pain as 10/10. According to the patient he was in usual state of health since Tuesday after which she developed Zaid new pain. The patient is severe abdominal pain on Tuesday and had multiple episodes of vomiting. On Tuesday,the patient complained of having shortness of breath and difficulty breathing along with severe right-sided chest and right upper quadrant pain after which, the patient was brought to the ER. On arrival, the patient had a temperature of 99.73 hours that later spiked 101.3, had tachycardia with HR 148 and blood pressure of 175/54. In ED, the patient received a total of 20 mg of hydralazine. Labs showed WBCs 23, CRP 147.8, pro calcitonin 1.26, sodium 134, potassium 3.4, Glucose 229, total bilirubin 1.8, direct bilirubin 0.5 and total protein 8.4. 06/11/2025: The patient was alert, awake, and oriented. He said that he was not having abdominal pain, chest pain or shortness of breath. The patient was afebrile but had a fever of 101.3 Yesterday, therefore, blood culture was ordered. Abdomen ultrasound showed hepatosplenomegaly with hepatic steatosis and gallbladder stones with mild wall thickening. HIDA scan was recommended and ordered. Meanwhile General surgery and Gastroenterology were consulted. Potassium was 3.3 and was replaced according to protocol. The patient was continued on vancomycin and cefepime and WBC showed a downward trend (23.2 > 13.9) Patient is on hypertension protocol and also started on hydrochlorothiazide due to his high blood pressure. Today his blood pressure is 171/120. REVIEW OF SYSTEMS CONSTITUTIONAL: Denies fevers, chills, or night sweats. No unintentional weight loss reported. NEUROLOGICAL: Denies headache, amaurosis fugax, motor weakness, sensory deficit, vertigo/spinning sensation, gait abnormalities, or tremors. ENT: No hearing loss, otalgia, otorrhea, rhinitis, rhinorrhea, hoarseness, or s ore throat. CARDIOVASCULAR: Denies any exertional angina, dyspnea on exertion, orthopnea, paroxysmal nocturnal dyspnea, palpitations, life-threatening arrhythmias, claudication. PULMONARY: Denies any shortness of breath, cough, phlegm/sputum, hemoptysis, pleuritic chest pain. SLEEP: Denies morning headaches, daytime somnolence or napping. Denies difficulty falling asleep, staying asleep, waking from sleep. Denies knowledge of snoring. GASTROINTESTINAL: History of GERD. Right upper quadrant pain. Episodes of vomiting on Tuesday. NPO GENITOURINARY: Denies frequency, urgency, nocturia, hematuria or incontinence (Storage/Irritative symptoms.) Low urinary stream, straining to void, urinary intermittency or hesitancy, splitting of the voiding stream, terminal dribbling. ENDOCRINOLOGIC: Denies polyuria, polydipsia, polyphagia or heat/cold intolerances. PHYSICAL EXAM GENERAL APPEARANCE: The patient is awake, alert, and oriented, in no acute cardiopulmonary distress. NEUROLOGICAL: Cranial nerves II-XII grossly intact. Motor is 5/5 in bilateral upper and lower extremities proximal to distal. No sensory deficits. HEENT: Face is symmetric. Pupils are equal and reactive. Extraocular movements are intact. NECK: Supple. No JVD. No thyromegaly. No submental, submandibular, pre- /postauricular, occipital or supraclavicular lymphadenopathy. CHEST: Normal chest expansion. No Telemetry. LUNGS: Absence of any rales, rhonchi or any wheezing. CARDIOVASCULAR: Regular. S1 and S2 normal. No appreciable rubs, murmurs or gallops. ABDOMEN: Soft, nontender, and distended. Slight pain in right upper quadrant : Deferred. No Uriarte. EXTREMITIES: Non-edematous and not cyanotic. No clubbing. Good capillary refill. SKIN: No skin breakdown. Vital Signs (last 8hr) Date Time Temp Pulse Resp B/P (MAP) Pulse Ox O2 Delivery O2 Flow Rate FiO2 06/11/25 12:00 97.5 88 18 171/120 95 Room Air 06/11/25 08:00 97.9 93 18 158/101 95 Room Air LABS: Laboratory: Test 06/11/25 11:12 06/11/25 04:38 06/10/25 20:45 06/10/25 15:55 Range/Units Whole Blood Glucose 150 H 70-110 MG/DL White Blood Count 13.9 #H 4.8-10.8 K/uL Red Blood Count 5.17 4.50-6.20 MIL/uL Hemoglobin 15.4 14.0-18.0 g/dL Hematocrit 43.9 42-54 % Mean Corpuscular Volume 84.9 79-99 fL Mean Corpuscular Hemoglobin 29.8 27.0-33.0 pg Mean Corpuscular Hemoglobin Concent 35.1 32.0-36.0 g/dL Red Cell Distribution Width 13.9 11.0-15.5 % Platelet Count 268 130-400 K/uL Mean Platelet Volume 9.6 7.5-10.5 fL Immature Granulocyte % (Auto) 1.3 H 0-1 % Neutrophils (%) (Auto) 84.7 H 40.0-77.0 % Lymphocytes (%) (Auto) 6.5 L 21.0-51.0 % Monocytes (%) (Auto) 7.1 3.0-13.0 % Eosinophils (%) (Auto) 0.0 0.0-8.0 % Basophils (%) (Auto) 0.4 0.0-5.0 % Neutrophils # (Auto) 11.8 H 1.8-7.7 K/uL Lymphocytes # (Auto) 0.9 L 1.0-4.8 K/uL Monocytes # (Auto) 1.0 0.1-1.0 K/uL Eosinophils # (Auto) 0.00 0.00-0.70 K/uL Basophils # (Auto) 0.05 0.00-0.20 K/uL Absolute Immature Granulocyte (auto 0.18 0-1 K/uL Nucleated Red Blood Cells 0.0 0.0-0.19 % White Cell Morphology Comment See comments Sodium Level 136 136-145 mmol/L Potassium Level 3.3 L 3.5-5.1 mmol/L Chloride Level 102 101-111 mmol/L Carbon Dioxide Level 24 21-32 mmol/L Blood Urea Nitrogen 10 7-18 mg/dL Creatinine 0.9 0.5-1.3 mg/dL Glomerular Filtration Rate Calc 107 >90 mL/min Random Glucose 173 H 70-105 mg/dL Hemoglobin A1c 6.6 H 4.0-6.0 % Estimated Average Glucose (eAG) 143 H 70-126 mg/dL Total Calcium 8.6 8.5-10.1 mg/dL Magnesium Level 2.30 1.80-2.40 mg/dL Total Bilirubin 1.4 #H 0.2-1.0 mg/dL Aspartate Amino Transf (AST/SGOT) 34 10-37 U/L Alanine Aminotransferase (ALT/SGPT) 56 12-78 U/L Alkaline Phosphatase 90 50-136 U/L Total Protein 7.7 6.0-8.3 g/dL Albumin 3.6 3.5-5.0 g/dL Triglycerides Level 52 30-200 mg/dL Cholesterol Level 151 <200 mg/dL LDL Cholesterol 76 0-99 mg/dL HDL Cholesterol 60 29-71 mg/dL Thyroid Stimulating Hormone (TSH) 0.71 0.36-3.74 uIU/mL Lactic Acid Level 2.3 0.8-2.5 mmol/L Influenza Type A Antigen Negative For Type A NEGATIVE Influenza Type B Antigen Negative For Type B NEGATIVE SARS-CoV-2 Antigen (Rapid) PRESUMPTIVE NEGATIVE NEGATIVE Group A Streptococcus Rapid negative NEGATIVE Test 06/10/25 15:05 06/10/25 12:08 06/10/25 12:02 06/10/25 10:28 Range/Units C-Reactive Protein, Quantitative 147.80 H 0.5-3.0 mg/L Procalcitonin 1.26 H 0.05-0.5 ng/mL Urine Color YELLOW YELLOW Urine Appearance CLEAR CLEAR Urine pH 5.5 5.0-8.0 Urine Specific Allen 1.019 1.001-1.031 Urine Protein 30 H NEGATIVE mg/dL Urine Glucose (UA) 200 H NEGATIVE mg/dL Urine Ketones 10 H NEGATIVE mg/dL Urine Occult Blood SMALL H NEGATIVE Urine Nitrate NEGATIVE NEGATIVE Urine Bilirubin NEGATIVE NEGATIVE mg/dL Urine Urobilinogen 0.2 0.2-1.0 mg/dL Urine Leukocyte Esterase NEGATIVE NEGATIVE Brett/uL Urine RBC 0-1 0-1 /HPF Urine WBC 2-5 H 0-1 /HPF Urine Squamous Epithelial Cells RARE 0-2 /HPF Urine Bacteria None None Seen /HPF Urine Hyaline Casts 2-5 H 0-1 /LPF /LPF Urine Opiates Screen NEGATIVE NEGATIVE Urine Barbiturates Screen NEGATIVE NEGATIVE Urine Phencyclidine Screen NEGATIVE NEGATIVE Urine Amphetamines Screen NEGATIVE NEGATIVE Urine Benzodiazepines Screen NEGATIVE NEGATIVE Urine Cocaine Screen NEGATIVE NEGATIVE Urine Marijuana (THC) Screen NEGATIVE NEGATIVE Prothrombin Time 11.0 9.6-11.6 SEC Prothromb Time International Ratio 1.04 0.85-1.15 Activated Partial Thromboplast Time 26.5 26.3-35.5 SEC D-Dimer Quantitative (PE/DVT) 449 0-500 ng/mL Direct Bilirubin 0.5 H 0.0-0.3 mg/dL Troponin I High Sensitivity 6 4-75 ng/L B-Type Natriuretic Peptide 50 0-100 pg/mL Current Medications Medications (Trade) Dose Ordered Sig/Oj Route PRN Reason Start Time Stop Time Status Last Admin Dose Admin Acetaminophen (TYLenol 325MG TAB) 650 mg Q4H PRN PO TEMPERATURE GREATER THAN 101.5 06/10/25 15:00 07/10/25 14:59 Cefepime HCl (MAXipime 2 gm vial) 2 gm Q12H IVPB 06/10/25 15:00 06/20/25 14:59 06/11/25 02:45 2 GM Famotidine (Pepcid 20mg Vial) 20 mg BID IV 06/10/25 21:30 07/10/25 21:29 06/11/25 08:23 20 MG Famotidine (Pepcid 20mg Tab) 20 mg BID PO 06/10/25 21:00 06/10/25 21:04 DC Hydralazine HCl (APRESOLine 20MG INJ) 10 mg ONCE IV 06/10/25 14:00 06/10/25 13:57 DC Hydralazine HCl (APRESOLine 20MG INJ) 10 mg Q4H PRN IV ADMINISTER FOR SBP > 160 06/10/25 15:00 07/10/25 14:59 06/11/25 03:13 10 MG Hydrochlorothiazide (hydroCHLOROthiazide 25MG) 25 mg DAILY PO 06/12/25 09:00 07/12/25 08:59 UNV Insulin Human Regular (humuLIN R 100 UNIT/ML 3ML) INSULIN SLIDING SCAL... ACHS SQ 06/10/25 16:30 07/10/25 16:29 06/10/25 17:19 4 UNIT Lactulose (Constulose 20gm/ 30ml Udcup) 20 gm BID PRN PO CONSTIPATION 06/10/25 15:00 07/10/25 14:59 Magnesium Sulfate 50 ml @ 0 mls/hr PROTOCOL PRN IV low mag level 06/10/25 15:30 07/10/25 15:29 Morphine Sulfate (morPHINE 2MG SYG) 2 mg Q4H PRN IVP SEVERE PAIN (7-10) 06/10/25 16:00 06/17/25 15:59 Pantoprazole Sodium (PROTonix 40MG INJ) 40 mg DAILY IVP 06/12/25 09:00 07/12/25 08:59 UNV Potassium Chloride 100 ml @ 100 mls/hr AD PRN IV POTASSIUM PROTOCOL 06/10/25 15:30 07/10/25 15:29 Potassium Chloride (K-Dur/Klor-Con 20meq) 20 meq AD PRN PO POTASSIUM PROTOCOL 06/10/25 15:30 07/10/25 15:29 06/10/25 16:26 20 MEQ Potassium Chloride (KCl 10% Elixir 20meq/15ml) 20 meq AD PRN PO POTASSIUM PROTOCOL 06/10/25 15:30 07/10/25 15:29 Sodium Chloride 1,000 ml @ 75 mls/hr [id number] IV 06/10/25 15:00 07/10/25 14:59 06/10/25 19:59 75 MLS/HR Vancomycin HCl 250 ml @ 125 mls/hr ONCE IV 06/10/25 15:30 06/10/25 21:30 DC 06/10/25 17:22 125 MLS/HR Vancomycin HCl (Vancomycin 1g/ 250ml Kit) 1 gm Q8H6 IV 06/11/25 06:00 06/21/25 05:59 06/11/25 13:08 1 [facility] DIAGNOSTICS / RADIOLOGY: PATIENT: ROGER DONG MR#: [id number] : 1980 SEX: M AGE: 44 LOCATION: ED ORDER 102 STATUS: REG ER REPORT#: [id number] SERVICE [id number] REASON: cp ORDERING PHYSICIAN: BERNARDA RAY MD PROCEDURE: CXR1VW - CHEST 1VW EXAM: CR Chest, 1 View. CLINICAL HISTORY: cp COMPARISON: None provided. FINDINGS: LUNGS: There is no mass, infiltrate, or acute pulmonary abnormality. Mild bibasilar atelectasis. PLEURAL SPACES: No pleural effusion or pneumothorax. MEDIASTINUM: Cardiac size and mediastinal contours within normal limits. BONES: No aggressive appearing osseous lesion seen. IMPRESSION: No acute cardiopulmonary pathology is evident. /[facility] DICTATED BY: ELLIOTT ANDRES Jr., MD DATE: 06/10/251310 ELECTRONICALLY SIGNED BY: ELLIOTT ANDRES Jr., MD DATE: 06/10/251310 PATIENT: ROGER DONG MR#: [id number] : 1980 SEX: M AGE: 44 LOCATION: [facility] ORDER 12 STATUS: ADM IN REPORT#: [id number] SERVICE 11 REASON: PE ORDERING PHYSICIAN: DIANA MARTIN NP PROCEDURE: CHES PE - CT CHEST PE PROTOCOL WWO CONT ADDENDUM REPORT ADDENDUM: Results were shared by telephone at 17:35 pm on 06/10/25 and acknowledged by Charge Nurse Ms.Josselyn Marie. /[facility] EXAM: CTA Chest with and without Intravenous Contrast for PE evaluation CLINICAL HISTORY: PE TECHNIQUE: Axial CTA images of the chest with and without intravenous contrast using a pulmonary embolism protocol. Multiplanar reconstructed images were created and reviewed. CONTRAST: None. was administered without incident. COMPARISON: None provided. FINDINGS: PULMONARY ARTERIES: Suboptimal bolus. No evidence of central embolism AORTA: There is no evidence for aneurysm or dissection of the thoracic aorta. LUNGS: Findings suggesting pulmonary venous congestion. Increased central alveolar markings with interlobular septal prominence. No consolidation PLEURAL SPACES: No pleural effusion seen. No pneumothorax evident. HEART: Normal heart size. No significant pericardial effusion. LYMPH NODES: No lymphadenopathy is evident. BONES: No focal osseous abnormality or acute fracture. UPPER ABDOMEN: Gallstones with inflammatory gallbladder changes. Right upper quadrant ultrasound recommended IMPRESSION: 1. Suboptimal bolus. No evidence of central embolism 2. Findings suggesting pulmonary venous congestion 3. Gallstones with inflammatory gallbladder changes. Right upper quadrant ultrasound recommended /[place] DICTATED BY: UTCKER SCHROEDER MD DATE: 06/10/251747 ELECTRONICALLY SIGNED BY: DATE: EXAM: CTA Chest with and without Intravenous Contrast for PE evaluation CLINICAL HISTORY: PE TECHNIQUE: Axial CTA images of the chest with and without intravenous contrast using a pulmonary embolism protocol. Multiplanar reconstructed images were created and reviewed. CONTRAST: None. was administered without incident. COMPARISON: None provided. FINDINGS: PULMONARY ARTERIES: Suboptimal bolus. No evidence of central embolism AORTA: There is no evidence for aneurysm or dissection of the thoracic aorta. LUNGS: Findings suggesting pulmonary venous congestion. Increased central alveolar markings with interlobular septal prominence. No consolidation PLEURAL SPACES: No pleural effusion seen. No pneumothorax evident. HEART: Normal heart size. No significant pericardial effusion. LYMPH NODES: No lymphadenopathy is evident. BONES: No focal osseous abnormality or acute fracture. UPPER ABDOMEN: Gallstones with inflammatory gallbladder changes. Right upper quadrant ultrasound recommended IMPRESSION: 1. Suboptimal bolus. No evidence of central embolism 2. Findings suggesting pulmonary venous congestion 3. Gallstones with inflammatory gallbladder changes. Right upper quadrant ultrasound recommended /[place] DICTATED BY: TUCKER SCHROEDER MD DATE: 06/10/251727 ELECTRONICALLY SIGNED BY: TUCKER SCHROEDER MD DATE: 06/10/251727 PATIENT: ROGER DONG MR#: [id number] : 1980 SEX: M AGE: 44 LOCATION: [facility] ORDER 155 STATUS: ADM IN REPORT#: [id number] SERVICE 1551 REASON: right upper quad pain ORDERING PHYSICIAN: DIANA MARTIN NP PROCEDURE: ABDOMEN - US ABDOMINAL COMPLETE EXAMINATION: ULTRASOUND OF THE ABDOMEN WITH COLOR DOPPLER. CLINICAL HISTORY: Right upper quadrant pain. COMPARISON: None provided. TECHNIQUE: Real-time grayscale ultrasound images of the abdomen. In addition, color Doppler is medically necessary to perform in order to evaluate vascularity and blood flow. FINDINGS: Study limited by bowel gas. Liver: Enlarged in caliber; the right hepatic lobe measures 18.3 cm in the craniocaudal dimension. There is increased echogenicity of the hepatic parenchyma. There is no focal hepatic abnormality or intrahepatic biliary ductal dilatation. There is normal spectral Doppler of the main portal vein (PSV-22 cm/s). Gallbladder: Wall thickened (0.5 cm). No hyperemia. There is trace pericholecystic free fluid. There are few calculi largest measure 1.0 cm. There is sludge. Common bile duct is normal in caliber, measuring 0.0 cm. Spleen is mildly enlarged in caliber and measures 12.2 cm in craniocaudal dimension. No focal lesions. Pancreas: Obscured by bowel gas. The kidneys are normal in caliber; the right kidney measures 11.5 x 6.3 x 5.9 cm in its craniocaudal, AP, and transverse dimensions, and the left kidney measures 11.5 x 5.7 x 5.2 cm in its craniocaudal, AP, and transverse dimensions. There is normal renal cortical thickness, and cortical echogenicity. There is no renal calculus. There is no hydronephrosis. Aorta and inferior vena cava are obscured by bowel gas. IMPRESSION: Hepatosplenomegaly with hepatic steatosis. Gallstones with mild gallbladder wall thickening and minimal pericholecystic fluid. Recommend HIDA scan. /[facility] DICTATED BY: FESTUS BERNAL MD DATE: 06/11/25754 ELECTRONICALLY SIGNED BY: FESTUS BERNAL MD DATE: 06/11/25754 PATIENT: ROGER DONG MR#: [id number] : 1980 SEX: M AGE: 44 LOCATION: [facility] ORDER 55 STATUS: ADM IN REPORT#: [id number] SERVICE 54 REASON: dvt ORDERING PHYSICIAN: DIANA MARTIN NP PROCEDURE: VENOUS CHECO - US VENOUS DOPPLER BILATERAL EXAMINATION: SPECTRAL DOPPLER ULTRASOUND EXAMINATION OF THE BILATERAL LOWER EXTREMITY VEINS. CLINICAL HISTORY: DVT. COMPARISON: None provided. TECHNIQUE: Real-time ultrasound scan of the veins of the bilateral lower extremity with color Doppler flow, spectral waveform analysis and compression. FINDINGS: DEEP VEINS: The common femoral, superficial femoral, deep femoral, popliteal, and posterior tibial veins are echolucent and compressible. There is normal color Doppler flow throughout. The visualized calf veins appear patent. SUPERFICIAL VEINS: The visualized greater saphenous veins are echolucent and compressible. SOFT TISSUES: No popliteal fossa cyst or other abnormalities. IMPRESSION: No deep venous thrombosis evident in the bilateral lower extremity examination. /[place] DICTATED BY: FESTUS BERNAL MD DATE: 06/11/25754 ELECTRONICALLY SIGNED BY: FESTUS BERNAL MD DATE: 06/11/25754 ASSESSMENT: Acute respiratory failure with hypoxia requiring oxygen supplemental POA Sepsis ( temperature 101.3, leukocytosis 23.2 Tachycardia 148POA hypertensive urgency POA Atypical chest pain most likely musculoskeletal pain POA Elevated d dimer suspecting PE POA Intractable abdominal pain right upper quad POA Severe GERD electrolytes derangement: hypokalemia POA hyperglycemia POA Obesity BMI 35.8 POA Anxiety requiring diazepam POA PLAN: Acute respiratory failure with hypoxia requiring oxygen supplemental POA: Chest x-ray was nonsignificant for any pathology Maintaining oxygen and 95% on room air No complain of chest pain or shortness of breath We will keep monitoring Sepsis : Patient is afebrile, heart rate 88, respiratory rate 18 WBC downtrending from 23.2 to 13.9 Blood culture ordered. Awaiting results. No growth for 24 hours Infectious disease consulted. Awaiting Continue on vancomycin (day 2) and cefepime (day 2) Intractable abdominal pain right upper quad: Abdominal ultrasound showed hepatosplenomegaly with hepatic steatosis and gallbladder stones with mild wall thickening. HIDA scan ordered Gastroenterology consulted Ordered NEO, mitochondrial antibody, microsomal antibody, anti smooth muscle antibody, hepatitis panel, alpha 1 antitrypsin, ceruloplasmin Patient started on Protonix 40 mg IV on GI recommendation General surgery will see the patient tomorrow. Morphine 2 mg prn Elevated d dimer suspecting PE POA: D-dimer is 449 CT chest ordered that was negative for embolism Venous Doppler ultrasound showed no DVT Hypokalemia POA: Today potassium was 3.3 Replaced according to protocol PHYSICIAN STATEMENT I was present with the resident during the History and Physical exam and I have reviewed the resident's note. This case was discussed with the resident and I agree with the history, physical exam and medical decision making as documented. Additions/exceptions/observations were directly added to the notes. Dhruv Joseph MD, SYED M MD Jun 11, 2025 14:30
--- NOTE | 2025-06-11 17:09 | NUR ---
PATIENT CURRENTLY AT PROCEDURE Addendum: 06/11/25 at 1709 by RUBY PETTY LVN Amended: Links added.
--- NOTE | 2025-06-11 22:24 | PN ---
INFECTIOUS DISEASE FOLLOWUP NOTE DATE OF SERVICE: 06/11/2025 SUBJECTIVE: The patient is seen and examined at bedside today. The patient has no fever, no chills. No abdominal pain. HIDA scan is pending. No diarrhea. No nausea or vomiting. No cough. No shortness of breath. No palpitations or orthopnea. PHYSICAL EXAMINATION: VITAL SIGNS: Temperature today 98.5. EYES: No icterus. Pupils are equal and reactive. HENT: No oral thrush seen. Moist oral mucosa. NECK: Supple. No JVD or thyromegaly. LUNGS: Good air entry. No rales. No rhonchi. CARDIOVASCULAR: S1 and S2, regular. No murmur heard. ABDOMEN: Full, soft, nontender. Bowel sounds are present. CENTRAL NERVOUS SYSTEM: Awake, alert, oriented x 3. No focal deficits. SKIN: No rashes. No itchiness. LYMPHATIC: No peripheral lymphadenopathy. BACK: No deformity, no pressure ulcer. ASSESSMENT: A 44-year-old male admitted with abdominal pain, nausea and vomiting. Current problems include: * Possible Gram-negative sepsis. * Possible cholecystitis. * Abdominal pain. * Nausea and vomiting. PLAN: * Follow up HIDA scan results. * Continue pain management. * Continue antiemetic. * Continue ____. * Monitor electrolytes. * Follow up cultures. TID: [id number] RECEIPT: [id number]
[2025-06-12] VITALS (8 sets, daily range): BP systolic 144–172; BP diastolic 84–126; PULSE 85–106; RESP 18–20; TEMP 97.8–98.9; O2SAT 94–98
[2025-06-12 05:33] LABS: NUCLEATED RED BLOOD CELLS 0.0 % (0.0-0.19); PLATELET COUNT (AUTO) 240.0 K/uL (130-400); RED BLOOD CELL COUNT(AUTO) 4.78 MIL/uL (4.50-6.20); RED CELL DISTRIBUTION WIDTH 13.9 % (11.0-15.5); WHITE BLOOD COUNT (AUTO) 11.3 K/uL (4.8-10.8)
[2025-06-12 05:48] LABS: ASPARTATE AMINOTRANSFERASE 27.0 U/L (10-37); CREATININE 0.9 mg/dL (0.5-1.3); GLOMERULAR FILTR. RATE CALC 107.0 mL/min (>90); GLUCOSE,RANDOM 132.0 mg/dL (70-105); SODIUM SERUM 137.0 mmol/L (136-145); TOTAL PROTEIN, SERUM 7.1 g/dL (6.0-8.3); UREA NITROGEN, BLOOD 14.0 mg/dL (7-18); VANCOMYCIN TROUGH 13.9 UG/ML (10.0-20.0)
--- NOTE | 2025-06-12 10:10 | PN ---
[facility] PROGRESS NOTE Date of Service: Jun 12, 2025 Time of Service: 10:07 SUBJECTIVE: The patient is a 44-year-old male with a past medical history of GERD. The patient presented to the ER with complaint of right-sided chest and upper quadrant pain since 2 days, with increased in severity on 06/10. He rated pain as 10/10. According to the patient he was in usual state of health since Tuesday after which she developed Zaid new pain. The patient is severe abdominal pain on Tuesday and had multiple episodes of vomiting. On Tuesday,the patient complained of having shortness of breath and difficulty breathing along with severe right-sided chest and right upper quadrant pain after which, the patient was brought to the ER. On arrival, the patient had a temperature of 99.73 hours that later spiked 101.3, had tachycardia with HR 148 and blood pressure of 175/54. In ED, the patient received a total of 20 mg of hydralazine. Labs showed WBCs 23, CRP 147.8, pro calcitonin 1.26, sodium 134, potassium 3.4, Glucose 229, total bilirubin 1.8, direct bilirubin 0.5 and total protein 8.4. 06/11/2025: The patient was alert, awake, and oriented. He said that he was not having abdominal pain, chest pain or shortness of breath. The patient was afebrile but had a fever of 101.3 Yesterday, therefore, blood culture was ordered. Abdomen ultrasound showed hepatosplenomegaly with hepatic steatosis and gallbladder stones with mild wall thickening. HIDA scan was recommended and ordered. Meanwhile General surgery and Gastroenterology were consulted. Potassium was 3.3 and was replaced according to protocol. The patient was continued on vancomycin and cefepime and WBC showed a downward trend (23.2 > 13.9) Patient is on hypertension protocol and also started on hydrochlorothiazide due to his high blood pressure. Today his blood pressure is 171/120. 06/12/2025: he patient was alert, awake, and oriented. He said that he was not having abdominal pain, chest pain or shortness of breath. The patient has been afebrile. HIDA scan was performed yesterday and showed acute cholecystitis. General surgery is already consulted and we are awaiting their recommendation. Gastroenterology saw the patient ordered NEO, mitochondrial antibody, microsomal antibody, anti smooth muscle antibody, hepatitis panel, alpha 1 antitrypsin, and ceruloplasmin. He is continued on vancomycin and cefepime. Patient is on hypertension protocol and also started on hydrochlorothiazide due to his high blood pressure. Today his blood pressure is 150/89. Patient does not have established PCP and does not remember the last time he went to a doctor, therefore he does not know his previous blood pressure readings. He is given 1 dose of clonidine along with hydrochlorothiazide, hydralazine and lisinopril. REVIEW OF SYSTEMS CONSTITUTIONAL: Denies fevers, chills, or night sweats. No unintentional weight loss reported. NEUROLOGICAL: Denies headache, amaurosis fugax, motor weakness, sensory deficit, vertigo/spinning sensation, gait abnormalities, or tremors. ENT: No hearing loss, otalgia, otorrhea, rhinitis, rhinorrhea, hoarseness, or sore throat. CARDIOVASCULAR: Denies any exertional angina, dyspnea on exertion, orthopnea, paroxysmal nocturnal dyspnea, palpitations, life-threatening arrhythmias, claudication. PULMONARY: Denies any shortness of breath, cough, phlegm/sputum, hemoptysis, pleuritic chest pain. SLEEP: Denies morning headaches, daytime somnolence or napping. Denies difficulty falling asleep, staying asleep, waking from sleep. Denies knowledge of snoring. GASTROINTESTINAL: History of GERD. Right upper quadrant pain. Episodes of vomiting on Tuesday. NPO GENITOURINARY: Denies frequency, urgency, nocturia, hematuria or incontinence (Storage/Irritative symptoms.) Low urinary stream, straining to void, urinary intermittency or hesitancy, splitting of the voiding stream, terminal dribbling. ENDOCRINOLOGIC: Denies polyuria, polydipsia, polyphagia or heat/cold intolerances. PHYSICAL EXAM GENERAL APPEARANCE: The patient is awake, alert, and oriented, in no acute cardiopulmonary distress. NEUROLOGICAL: Cranial nerves II-XII grossly intact. Motor is 5/5 in bilateral upper and lower extremities proximal to distal. No sensory deficits. HEENT: Face is symmetric. Pupils are equal and reactive. Extraocular movements are intact. NECK: Supple. No JVD. No thyromegaly. No submental, submandibular, pre- /postauricular, occipital or supraclavicular lymphadenopathy. CHEST: Normal chest expansion. No Telemetry. LUNGS: Absence of any rales, rhonchi or any wheezing. CARDIOVASCULAR: Regular. S1 and S2 normal. No appreciable rubs, murmurs or gallops. ABDOMEN: Soft, nontender, and distended. Slight pain in right upper quadrant : Deferred. No Uriarte. EXTREMITIES: Non-edematous and not cyanotic. No clubbing. Good capillary refill. SKIN: No skin breakdown. Vital Signs (last 8hr) Date Time Temp Pulse Resp B/P (MAP) Pulse Ox O2 Delivery O2 Flow Rate FiO2 06/12/25 07:48 98.2 85 18 156/92 95 Room Air 21 06/12/25 03:00 99.0 94 18 150/89 96 Room Air LABS: Laboratory: Test 06/12/25 05:06 06/11/25 19:09 06/11/25 04:38 06/10/25 20:45 Range/Units White Blood Count 11.3 H 4.8-10.8 K/uL Red Blood Count 4.78 4.50-6.20 MIL/uL Hemoglobin 14.4 14.0-18.0 g/dL Hematocrit 41.3 L 42-54 % Mean Corpuscular Volume 86.4 79-99 fL Mean Corpuscular Hemoglobin 30.1 27.0-33.0 pg Mean Corpuscular Hemoglobin Concent 34.9 32.0-36.0 g/dL Red Cell Distribution Width 13.9 11.0-15.5 % Platelet Count 240 130-400 K/uL Mean Platelet Volume 9.3 7.5-10.5 fL Nucleated Red Blood Cells 0.0 0.0-0.19 % Sodium Level 137 136-145 mmol/L Potassium Level 3.4 L 3.5-5.1 mmol/L Chloride Level 102 101-111 mmol/L Carbon Dioxide Level 24 21-32 mmol/L Blood Urea Nitrogen 14 7-18 mg/dL Creatinine 0.9 0.5-1.3 mg/dL Glomerular Filtration Rate Calc 107 >90 mL/min Random Glucose 132 H 70-105 mg/dL Total Calcium 8.5 8.5-10.1 mg/dL Total Bilirubin 1.1 H 0.2-1.0 mg/dL Aspartate Amino Transf (AST/SGOT) 27 10-37 U/L Alanine Aminotransferase (ALT/SGPT) 47 12-78 U/L Alkaline Phosphatase 91 50-136 U/L Total Protein 7.1 6.0-8.3 g/dL Albumin 3.1 L 3.5-5.0 g/dL Vancomycin Level Trough 13.9 10.0-20.0 UG/ML Whole Blood Glucose 123 H 70-110 MG/DL Immature Granulocyte % (Auto) 1.3 H 0-1 % Neutrophils (%) (Auto) 84.7 H 40.0-77.0 % Lymphocytes (%) (Auto) 6.5 L 21.0-51.0 % Monocytes (%) (Auto) 7.1 3.0-13.0 % Eosinophils (%) (Auto) 0.0 0.0-8.0 % Basophils (%) (Auto) 0.4 0.0-5.0 % Neutrophils # (Auto) 11.8 H 1.8-7.7 K/uL Lymphocytes # (Auto) 0.9 L 1.0-4.8 K/uL Monocytes # (Auto) 1.0 0.1-1.0 K/uL Eosinophils # (Auto) 0.00 0.00-0.70 K/uL Basophils # (Auto) 0.05 0.00-0.20 K/uL Absolute Immature Granulocyte (auto 0.18 0-1 K/uL White Cell Morphology Comment See comments Hemoglobin A1c 6.6 H 4.0-6.0 % Estimated Average Glucose (eAG) 143 H 70-126 mg/dL Magnesium Level 2.30 1.80-2.40 mg/dL Triglycerides Level 52 30-200 mg/dL Cholesterol Level 151 <200 mg/dL LDL Cholesterol 76 0-99 mg/dL HDL Cholesterol 60 29-71 mg/dL Thyroid Stimulating Hormone (TSH) 0.71 0.36-3.74 uIU/mL Lactic Acid Level 2.3 0.8-2.5 mmol/L Test 06/10/25 15:55 06/10/25 15:05 06/10/25 12:08 06/10/25 12:02 Range/Units Influenza Type A Antigen Negative For Type A NEGATIVE Influenza Type B Antigen Negative For Type B NEGATIVE SARS-CoV-2 Antigen (Rapid) PRESUMPTIVE NEGATIVE NEGATIVE Group A Streptococcus Rapid negative NEGATIVE C-Reactive Protein, Quantitative 147.80 H 0.5-3.0 mg/L Procalcitonin 1.26 H 0.05-0.5 ng/mL Urine Color YELLOW YELLOW Urine Appearance CLEAR CLEAR Urine pH 5.5 5.0-8.0 Urine Specific [place] 1.019 1.001-1.031 Urine Protein 30 H NEGATIVE mg/dL Urine Glucose (UA) 200 H NEGATIVE mg/dL Urine Ketones 10 H NEGATIVE mg/dL Urine Occult Blood SMALL H NEGATIVE Urine Nitrate NEGATIVE NEGATIVE Urine Bilirubin NEGATIVE NEGATIVE mg/dL Urine Urobilinogen 0.2 0.2-1.0 mg/dL Urine Leukocyte Esterase NEGATIVE NEGATIVE Brett/uL Urine RBC 0-1 0-1 /HPF Urine WBC 2-5 H 0-1 /HPF Urine Squamous Epithelial Cells RARE 0-2 /HPF Urine Bacteria None None Seen /HPF Urine Hyaline Casts 2-5 H 0-1 /LPF /LPF Urine Opiates Screen NEGATIVE NEGATIVE Urine Barbiturates Screen NEGATIVE NEGATIVE Urine Phencyclidine Screen NEGATIVE NEGATIVE Urine Amphetamines Screen NEGATIVE NEGATIVE Urine Benzodiazepines Screen NEGATIVE NEGATIVE Urine Cocaine Screen NEGATIVE NEGATIVE Urine Marijuana (THC) Screen NEGATIVE NEGATIVE Test 06/10/25 10:28 Range/Units Prothrombin Time 11.0 9.6-11.6 SEC Prothromb Time International Ratio 1.04 0.85-1.15 Activated Partial Thromboplast Time 26.5 26.3-35.5 SEC D-Dimer Quantitative (PE/DVT) 449 0-500 ng/mL Direct Bilirubin 0.5 H 0.0-0.3 mg/dL Troponin I High Sensitivity 6 4-75 ng/L B-Type Natriuretic Peptide 50 0-100 pg/mL Current Medications Medications (Trade) Dose Ordered Sig/Oj Route PRN Reason Start Time Stop Time Status Last Admin Dose Admin Acetaminophen (TYLenol 325MG TAB) 650 mg Q4H PRN PO TEMPERATURE GREATER THAN 101.5 06/10/25 15:00 07/10/25 14:59 Cefepime HCl (MAXipime 2 gm vial) 2 gm Q12H IVPB 06/10/25 15:00 06/20/25 14:59 06/12/25 03:25 2 GM Famotidine (Pepcid 20mg Vial) 20 mg BID IV 06/10/25 21:30 06/11/25 23:59 DC 06/11/25 20:26 20 MG Famotidine (Pepcid 20mg Tab) 20 mg BID PO 06/10/25 21:00 06/10/25 21:04 DC Hydralazine HCl (APRESOLine 20MG INJ) 10 mg ONCE IV 06/10/25 14:00 06/10/25 13:57 DC Hydralazine HCl (APRESOLine 20MG INJ) 10 mg Q4H PRN IV ADMINISTER FOR SBP > 160 06/10/25 15:00 07/10/25 14:59 06/11/25 20:26 10 MG Hydrochlorothiazide (hydroCHLOROthiazide 25MG) 25 mg DAILY PO 06/12/25 09:00 07/12/25 08:59 Insulin Human Regular (humuLIN R 100 UNIT/ML 3ML) INSULIN SLIDING SCAL... ACHS SQ 06/10/25 16:30 07/10/25 16:29 06/10/25 17:19 4 UNIT Lactulose (Constulose 20gm/ 30ml Udcup) 20 gm BID PRN PO CONSTIPATION 06/10/25 15:00 07/10/25 14:59 Magnesium Sulfate 50 ml @ 0 mls/hr PROTOCOL PRN IV low mag level 06/10/25 15:30 07/10/25 15:29 Morphine Sulfate (morPHINE 2MG SYG) 2 mg Q4H PRN IVP SEVERE PAIN (7-10) 06/10/25 16:00 06/17/25 15:59 Pantoprazole Sodium (PROTonix 40MG INJ) 40 mg DAILY IVP 06/12/25 09:00 07/12/25 08:59 Potassium Chloride 100 ml @ 100 mls/hr AD PRN IV POTASSIUM PROTOCOL 06/10/25 15:30 07/10/25 15:29 06/11/25 20:26 100 MLS/HR Potassium Chloride (K-Dur/Klor-Con 20meq) 20 meq AD PRN PO POTASSIUM PROTOCOL 06/10/25 15:30 07/10/25 15:29 06/10/25 16:26 20 MEQ Potassium Chloride (KCl 10% Elixir 20meq/15ml) 20 meq AD PRN PO POTASSIUM PROTOCOL 06/10/25 15:30 07/10/25 15:29 Sodium Chloride 1,000 ml @ 75 mls/hr [id number] IV 06/10/25 15:00 07/10/25 14:59 06/12/25 06:19 75 MLS/HR Vancomycin HCl 250 ml @ 125 mls/hr ONCE IV 06/10/25 15:30 06/10/25 21:30 DC 06/10/25 17:22 125 MLS/HR Vancomycin HCl (Vancomycin 1g/ 250ml Kit) 1 gm Q8H6 IV 06/11/25 06:00 06/21/25 05:59 06/12/25 06:18 1 GM DIAGNOSTICS / RADIOLOGY: PATIENT: ROGER DONG MR#: [id number] : 1980 SEX: M AGE: 44 LOCATION: 4BH ORDER 7 STATUS: ADM IN REPORT#: [id number] SERVICE 5 REASON: RUQ pain ORDERING PHYSICIAN: ANDREW ESTES MD PROCEDURE: HIDAWO - NM HIDA WO EF/CCK Examination Hepatobiliary study History RUQ pain Technique Tc-99m mebrofenin were administered intravenously followed by acquisition of planar images of the abdomen. Findings Following administration of radiotracer, there is prompt appearance of normal hepatic contours, followed by appearance of activity in unremarkable appearing bile ducts. There is nonvisualization of the gallbladder suggesting acute cholecystitis. IMPRESSION: 1. Nonvisualization of the gallbladder suggesting acute cholecystitis. /[place] DICTATED BY: ELLIOTT ANDRES Jr., MD DATE: 06/12/251615 ELECTRONICALLY SIGNED BY: ELLIOTT ANDRES Jr., MD DATE: 06/12/251615 ASSESSMENT: Acute respiratory failure with hypoxia requiring oxygen supplemental POA Sepsis ( temperature 101.3, leukocytosis 23.2 Tachycardia 148POA hypertensive urgency POA Atypical chest pain most likely musculoskeletal pain POA Elevated d dimer suspecting PE POA Intractable abdominal pain right upper quad POA Severe GERD electrolytes derangement: hypokalemia POA hyperglycemia POA Obesity BMI 35.8 POA Anxiety requiring diazepam POA PLAN: Acute respiratory failure with hypoxia requiring oxygen supplemental POA: Chest x-ray was nonsignificant for any pathology Maintaining oxygen and 95% on room air No complain of chest pain or shortness of breath We will keep monitoring Sepsis : Patient is afebrile, heart rate 94, respiratory rate 18 WBC downtrending to 11.3 Blood culture ordered. Awaiting results. No growth for 24 hours Infectious disease consulted. Continue on vancomycin (day 3) and cefepime (day 3) Intractable abdominal pain right upper quad: Abdominal ultrasound showed hepatosplenomegaly with hepatic steatosis and gallbladder stones with mild wall thickening. HIDA scan ordered Gastroenterology consulted Ordered NEO, mitochondrial antibody, microsomal antibody, anti smooth muscle antibody, hepatitis panel, alpha 1 antitrypsin, ceruloplasmin Patient started on Protonix 40 mg IV on GI recommendation General surgery will see the patient today. Morphine 2 mg prn Elevated d dimer suspecting PE POA: D-dimer was 449 CT chest ordered that was negative for embolism Venous Doppler ultrasound showed no DVT Hypokalemia POA: Today potassium was 3.4 Replaced according to protocol Hypertensive urgency POA High diastolic and systolic pressure Started on hydralazine, hydrochlorothiazide and lisinopril Given 1 dose of clonidine Monitor blood pressure PHYSICIAN RESIDENT STATEMENT I was present with the resident during the History and Physical exam and I have reviewed the resident's note. This case was discussed with the resident and I agree with the history, physical exam and medical decision making as documented. Additions/exceptions/observations were directly added to the notes. Dhruv Joseph MD, SYED M MD Jun 12, 2025 10:10
--- NOTE | 2025-06-12 11:38 | PN ---
GASTROENTEROLOGY PROGRESS NOTE Date of Visit: Jun 12, 2025 Time of Visit: 11:36 Events / Notes: [ 06/12/25: WBC 11.3, hemoglobin 14.4, platelets 240.Chemistry significant for potassium of 3.4. Total bilirubin trending down to 1.1, AST, ALT alkaline phos and total protein are normal. Albumin 3.1. HIDA scan was completed yesterday but results are pending. Patient's blood pressure has been elevated and has been started on hydrochlorothiazide. On exam, patient reports feeling better and has less abdominal pain. Informed of pending HIDA scan results to determine next poc. Will continue to follow. ] Review of Systems: CONSTITUTIONAL: No malaise or change in sensation of wellbeing. ENMT: No rhinorrhea, otorrhea, sinus pain, ear ache. CARDIOVASCULAR: No angina, palpitations, orthopnea or paroxysmal dyspnea. RESPIRATORY: No SOB. GASTROINTESTINAL: No abdominal pain, nausea, vomiting, diarrhea, hematemesis, melena or change in the patient's habitual bowel movements consistency/number. GENITOURINARY: No dysuria, hematuria or change in bladder continence. MUSCULOSKELETAL: No new muscle pain or decrease in muscular strength. No new j oint swelling, redness or tenderness. SKIN: No new rash. Physical Exam: GEN: Awake, alert, oriented in person, time and place, and in no acute distress. HEENT No rhinorrhea. Oral pharyngeal mucosa is pink, moist and within normal limits. Neck is supple. CHEST: Inspection, palpation of the chest were unremarkable. Lung auscultation revealed normal breath sounds bilaterally. CARDIAC: PMI is within normal limits. Heart sounds are regular. ABD: Soft, non-tender and not distended. No peritoneal signs on palpation. No organomegaly. Normal bowel sounds. EXT: No cyanosis or clubbing. No edema. SKIN: Intact. No rashes. JOINTS: No evidence of synovitis or acute arthritis. NEURO: Alert and oriented to name, place and person. No focal motor deficits. Normal speech. Strength is normal. Vital Signs (last 8hr) Date Time Temp Pulse Resp B/P (MAP) Pulse Ox O2 Delivery O2 Flow Rate FiO2 06/12/25 11:17 97.9 99 20 172/117 97 Room Air 21 06/12/25 07:48 98.2 85 18 156/92 95 Room Air 21 Laboratory: [ ] Laboratory: Test 06/12/25 10:51 06/12/25 05:06 06/11/25 04:38 06/10/25 20:45 Range/Units Whole Blood Glucose 136 H 70-110 MG/DL White Blood Count 11.3 H 4.8-10.8 K/uL Red Blood Count 4.78 4.50-6.20 MIL/uL Hemoglobin 14.4 14.0-18.0 g/dL Hematocrit 41.3 L 42-54 % Mean Corpuscular Volume 86.4 79-99 fL Mean Corpuscular Hemoglobin 30.1 27.0-33.0 pg Mean Corpuscular Hemoglobin Concent 34.9 32.0-36.0 g/dL Red Cell Distribution Width 13.9 11.0-15.5 % Platelet Count 240 130-400 K/uL Mean Platelet Volume 9.3 7.5-10.5 fL Nucleated Red Blood Cells 0.0 0.0-0.19 % Sodium Level 137 136-145 mmol/L Potassium Level 3.4 L 3.5-5.1 mmol/L Chloride Level 102 101-111 mmol/L Carbon Dioxide Level 24 21-32 mmol/L Blood Urea Nitrogen 14 7-18 mg/dL Creatinine 0.9 0.5-1.3 mg/dL Glomerular Filtration Rate Calc 107 >90 mL/min Random Glucose 132 H 70-105 mg/dL Total Calcium 8.5 8.5-10.1 mg/dL Total Bilirubin 1.1 H 0.2-1.0 mg/dL Aspartate Amino Transf (AST/SGOT) 27 10-37 U/L Alanine Aminotransferase (ALT/SGPT) 47 12-78 U/L Alkaline Phosphatase 91 50-136 U/L Total Protein 7.1 6.0-8.3 g/dL Albumin 3.1 L 3.5-5.0 g/dL Vancomycin Level Trough 13.9 10.0-20.0 UG/ML Immature Granulocyte % (Auto) 1.3 H 0-1 % Neutrophils (%) (Auto) 84.7 H 40.0-77.0 % Lymphocytes (%) (Auto) 6.5 L 21.0-51.0 % Monocytes (%) (Auto) 7.1 3.0-13.0 % Eosinophils (%) (Auto) 0.0 0.0-8.0 % Basophils (%) (Auto) 0.4 0.0-5.0 % Neutrophils # (Auto) 11.8 H 1.8-7.7 K/uL Lymphocytes # (Auto) 0.9 L 1.0-4.8 K/uL Monocytes # (Auto) 1.0 0.1-1.0 K/uL Eosinophils # (Auto) 0.00 0.00-0.70 K/uL Basophils # (Auto) 0.05 0.00-0.20 K/uL Absolute Immature Granulocyte (auto 0.18 0-1 K/uL White Cell Morphology Comment See comments Hemoglobin A1c 6.6 H 4.0-6.0 % Estimated Average Glucose (eAG) 143 H 70-126 mg/dL Magnesium Level 2.30 1.80-2.40 mg/dL Triglycerides Level 52 30-200 mg/dL Cholesterol Level 151 <200 mg/dL LDL Cholesterol 76 0-99 mg/dL HDL Cholesterol 60 29-71 mg/dL Thyroid Stimulating Hormone (TSH) 0.71 0.36-3.74 uIU/mL Lactic Acid Level 2.3 0.8-2.5 mmol/L Test 06/10/25 15:55 06/10/25 15:05 06/10/25 12:08 06/10/25 12:02 Range/Units Influenza Type A Antigen Negative For Type A NEGATIVE Influenza Type B Antigen Negative For Type B NEGATIVE SARS-CoV-2 Antigen (Rapid) PRESUMPTIVE NEGATIVE NEGATIVE Group A Streptococcus Rapid negative NEGATIVE C-Reactive Protein, Quantitative 147.80 H 0.5-3.0 mg/L Procalcitonin 1.26 H 0.05-0.5 ng/mL Urine Color YELLOW YELLOW Urine Appearance CLEAR CLEAR Urine pH 5.5 5.0-8.0 Urine Specific [place] 1.019 1.001-1.031 Urine Protein 30 H NEGATIVE mg/dL Urine Glucose (UA) 200 H NEGATIVE mg/dL Urine Ketones 10 H NEGATIVE mg/dL Urine Occult Blood SMALL H NEGATIVE Urine Nitrate NEGATIVE NEGATIVE Urine Bilirubin NEGATIVE NEGATIVE mg/dL Urine Urobilinogen 0.2 0.2-1.0 mg/dL Urine Leukocyte Esterase NEGATIVE NEGATIVE Brett/uL Urine RBC 0-1 0-1 /HPF Urine WBC 2-5 H 0-1 /HPF Urine Squamous Epithelial Cells RARE 0-2 /HPF Urine Bacteria None None Seen /HPF Urine Hyaline Casts 2-5 H 0-1 /LPF /LPF Urine Opiates Screen NEGATIVE NEGATIVE Urine Barbiturates Screen NEGATIVE NEGATIVE Urine Phencyclidine Screen NEGATIVE NEGATIVE Urine Amphetamines Screen NEGATIVE NEGATIVE Urine Benzodiazepines Screen NEGATIVE NEGATIVE Urine Cocaine Screen NEGATIVE NEGATIVE Urine Marijuana (THC) Screen NEGATIVE NEGATIVE Current Medications Medications (Trade) Dose Ordered Sig/Oj Route PRN Reason Start Time Stop Time Status Last Admin Dose Admin Acetaminophen (TYLenol 325MG TAB) 650 mg Q4H PRN PO TEMPERATURE GREATER THAN 101.5 06/10/25 15:00 07/10/25 14:59 Cefepime HCl (MAXipime 2 gm vial) 2 gm Q12H IVPB 06/10/25 15:00 06/20/25 14:59 06/12/25 03:25 2 GM Famotidine (Pepcid 20mg Vial) 20 mg BID IV 06/10/25 21:30 06/11/25 23:59 DC 06/11/25 20:26 20 MG Famotidine (Pepcid 20mg Tab) 20 mg BID PO 06/10/25 21:00 06/10/25 21:04 DC Hydralazine HCl (APRESOLine 20MG INJ) 10 mg ONCE IV 06/10/25 14:00 06/10/25 13:57 DC Hydralazine HCl (APRESOLine 20MG INJ) 10 mg Q4H PRN IV ADMINISTER FOR SBP > 160 06/10/25 15:00 07/10/25 14:59 06/12/25 10:52 10 MG Hydrochlorothiazide (hydroCHLOROthiazide 25MG) 25 mg DAILY PO 06/12/25 09:00 07/12/25 08:59 06/12/25 10:52 25 MG Insulin Human Regular (humuLIN R 100 UNIT/ML 3ML) INSULIN SLIDING SCAL... ACHS SQ 06/10/25 16:30 07/10/25 16:29 06/10/25 17:19 4 UNIT Lactulose (Constulose 20gm/ 30ml Udcup) 20 gm BID PRN PO CONSTIPATION 06/10/25 15:00 07/10/25 14:59 Magnesium Sulfate 50 ml @ 0 mls/hr PROTOCOL PRN IV low mag level 06/10/25 15:30 07/10/25 15:29 Morphine Sulfate (morPHINE 2MG SYG) 2 mg Q4H PRN IVP SEVERE PAIN (7-10) 06/10/25 16:00 06/17/25 15:59 Pantoprazole Sodium (PROTonix 40MG INJ) 40 mg DAILY IVP 06/12/25 09:00 07/12/25 08:59 06/12/25 10:52 40 MG Potassium Chloride 100 ml @ 100 mls/hr AD PRN IV POTASSIUM PROTOCOL 06/10/25 15:30 07/10/25 15:29 06/11/25 20:26 100 MLS/HR Potassium Chloride (K-Dur/Klor-Con 20meq) 20 meq AD PRN PO POTASSIUM PROTOCOL 06/10/25 15:30 07/10/25 15:29 06/10/25 16:26 20 MEQ Potassium Chloride (KCl 10% Elixir 20meq/15ml) 20 meq AD PRN PO POTASSIUM PROTOCOL 06/10/25 15:30 07/10/25 15:29 Sodium Chloride 1,000 ml @ 75 mls/hr [id number] IV 06/10/25 15:00 07/10/25 14:59 06/12/25 06:19 75 MLS/HR Vancomycin HCl 250 ml @ 125 mls/hr ONCE IV 06/10/25 15:30 06/10/25 21:30 DC 06/10/25 17:22 125 MLS/HR Vancomycin HCl (Vancomycin 1g/ 250ml Kit) 1 gm Q8H6 IV 06/11/25 06:00 06/21/25 05:59 06/12/25 06:18 1 GM Diagnostics / Radiology: [COPY/PASTE HERE IF NO REPORTS PLEASE DELETE SECTION] Assessment: Abdominal pain [ Hepatosplenomegaly Cholelithiasis Alcohol abuse] Plan: Case discussed with Dr. Whitt [NPO Recommend Gi prophylaxis with Protonix IV bid HIDA scan pending results Liver serologies ordered Please call with questions, concerns, and change in clinical status. Will continue to follow Thank you for this consult. ] NAVJOT CARLSON [employer] Jun 12, 2025 11:38
--- NOTE | 2025-06-12 15:16 | HMCIMG ---
Examination Hepatobiliary study History RUQ pain Technique Tc-99m mebrofenin were administered intravenously followed by acquisition of planar images of the abdomen. Findings Following administration of radiotracer, there is prompt appearance of normal hepatic contours, followed by appearance of activity in unremarkable appearing bile ducts. There is nonvisualization of the gallbladder suggesting acute cholecystitis. IMPRESSION: 1. Nonvisualization of the gallbladder suggesting acute cholecystitis. /[place]
--- NOTE | 2025-06-12 15:37 | PN ---
INFECTIOUS DISEASE PROGRESS NOTE Date of Service: Jun 12, 2025 SUBJECTIVE: This is a 44-year-old male patient who was admitted to the hospital for chief complaint of chest pain and right upper abdominal pain. A CT of the chest was negative for PE and an abdominal ultrasound showed gallstones with mild gallbladder wall thickening. At this time a HIDA scan is pending to confirm Cholecystitis. Patient is afebrile, temperature is 97.9 and the WBC trended down to t 11.3. No nausea or vomiting. We will continue to follow patient's care. PHYSICAL EXAM EYES: Anicteric. Pupils equal and reactive. HENT: No oral thrush seen, moist Oral mucosa. NECK: Supple, no JVD or thyromegaly. LUNGS: Good air entry. No rales, no rhonchi. CARDIOVASCULAR: S1, S2 regular. No murmur heard. ABDOMEN: Soft, tender, bowel sounds present. Abdominal pain. CENTRAL NERVOUS SYSTEM: Awake, alert, oriented x 3. SKIN: No rashes, no swelling. LYMPHATICS: No peripheral lymphadenopathy. MUSCULOSKELETAL: No joint swelling, erythema or tenderness. EXTREMITIES: No cyanosis or clubbing. BACK: No deformity, no pressure ulcer. GENITOURINARY: No dysuria or hematuria. Vital Sign (Last 12 Hours) 06/12/25 06/12/25 06/12/25 07:48 11:17 15:18 Temp 98.2 97.9 Pulse 85 99 105 Resp 18 20 B/P (MAP) 156/92 172/117 163/126 Pulse Ox 95 97 O2 Delivery Room Air Room Air FiO2 21 21 Intake & Output (last 24hrs) 06/11/25 06/11/25 06/12/25 14:59 22:59 06:59 Intake Total 0 ml 0 ml 500 ml Balance 0 ml 0 ml 500 ml LABS: Laboratory: Test 06/12/25 15:13 06/12/25 05:06 06/11/25 13:17 06/11/25 04:38 Range/Units Whole Blood Glucose 141 H 70-110 MG/DL White Blood Count 11.3 H 4.8-10.8 K/uL Red Blood Count 4.78 4.50-6.20 MIL/uL Hemoglobin 14.4 14.0-18.0 g/dL Hematocrit 41.3 L 42-54 % Mean Corpuscular Volume 86.4 79-99 fL Mean Corpuscular Hemoglobin 30.1 27.0-33.0 pg Mean Corpuscular Hemoglobin Concent 34.9 32.0-36.0 g/dL Red Cell Distribution Width 13.9 11.0-15.5 % Platelet Count 240 130-400 K/uL Mean Platelet Volume 9.3 7.5-10.5 fL Nucleated Red Blood Cells 0.0 0.0-0.19 % Sodium Level 137 136-145 mmol/L Potassium Level 3.4 L 3.5-5.1 mmol/L Chloride Level 102 101-111 mmol/L Carbon Dioxide Level 24 21-32 mmol/L Blood Urea Nitrogen 14 7-18 mg/dL Creatinine 0.9 0.5-1.3 mg/dL Glomerular Filtration Rate Calc 107 >90 mL/min Random Glucose 132 H 70-105 mg/dL Total Calcium 8.5 8.5-10.1 mg/dL Total Bilirubin 1.1 H 0.2-1.0 mg/dL Aspartate Amino Transf (AST/SGOT) 27 10-37 U/L Alanine Aminotransferase (ALT/SGPT) 47 12-78 U/L Alkaline Phosphatase 91 50-136 U/L Total Protein 7.1 6.0-8.3 g/dL Albumin 3.1 L 3.5-5.0 g/dL Vancomycin Level Trough 13.9 10.0-20.0 UG/ML Ceruloplasmin 27.8 16.0-31.0 mg/dL Anti-Nuclear Antibody Screen Negative Negative KAREN-1 Antibody SS-A/Ro Antibody SS-B/La Antibody Sm ([place]) IgG Antibody, Quant MANAGER UNIT IgG Antibody, Quantitative Scl-70 (Scleroderma) Antibody Anti-Double Strand DNA Antibody Anti-Centromere IgG Antibody Immature Granulocyte % (Auto) 1.3 H 0-1 % Neutrophils (%) (Auto) 84.7 H 40.0-77.0 % Lymphocytes (%) (Auto) 6.5 L 21.0-51.0 % Monocytes (%) (Auto) 7.1 3.0-13.0 % Eosinophils (%) (Auto) 0.0 0.0-8.0 % Basophils (%) (Auto) 0.4 0.0-5.0 % Neutrophils # (Auto) 11.8 H 1.8-7.7 K/uL Lymphocytes # (Auto) 0.9 L 1.0-4.8 K/uL Monocytes # (Auto) 1.0 0.1-1.0 K/uL Eosinophils # (Auto) 0.00 0.00-0.70 K/uL Basophils # (Auto) 0.05 0.00-0.20 K/uL Absolute Immature Granulocyte (auto 0.18 0-1 K/uL White Cell Morphology Comment See comments Hemoglobin A1c 6.6 H 4.0-6.0 % Estimated Average Glucose (eAG) 143 H 70-126 mg/dL Magnesium Level 2.30 1.80-2.40 mg/dL Triglycerides Level 52 30-200 mg/dL Cholesterol Level 151 <200 mg/dL LDL Cholesterol 76 0-99 mg/dL HDL Cholesterol 60 29-71 mg/dL Thyroid Stimulating Hormone (TSH) 0.71 0.36-3.74 uIU/mL Test 06/10/25 20:45 06/10/25 15:55 Range/Units Lactic Acid Level 2.3 0.8-2.5 mmol/L Influenza Type A Antigen Negative For Type A NEGATIVE Influenza Type B Antigen Negative For Type B NEGATIVE SARS-CoV-2 Antigen (Rapid) PRESUMPTIVE NEGATIVE NEGATIVE Group A Streptococcus Rapid negative NEGATIVE DIAGNOSTICS / RADIOLOGY: PATIENT: ROGER DONG MR#: [id number] : 1980 SEX: M AGE: 44 LOCATION: [facility] ORDER 1553 STATUS: ADM IN REPORT#: [id number] SERVICE 1551 REASON: right upper quad pain ORDERING PHYSICIAN: DIANA MARTIN NP PROCEDURE: ABDOMEN - US ABDOMINAL COMPLETE EXAMINATION: ULTRASOUND OF THE ABDOMEN WITH COLOR DOPPLER. CLINICAL HISTORY: Right upper quadrant pain. COMPARISON: None provided. TECHNIQUE: Real-time grayscale ultrasound images of the abdomen. In addition, color Doppler is medically necessary to perform in order to evaluate vascularity and blood flow. FINDINGS: Study limited by bowel gas. Liver: Enlarged in caliber; the right hepatic lobe measures 18.3 cm in the craniocaudal dimension. There is increased echogenicity of the hepatic parenchyma. There is no focal hepatic abnormality or intrahepatic biliary ductal dilatation. There is normal spectral Doppler of the main portal vein (PSV-22 cm/s). Gallbladder: Wall thickened (0.5 cm). No hyperemia. There is trace pericholecystic free fluid. There are few calculi largest measure 1.0 cm. There is sludge. Common bile duct is normal in caliber, measuring 0.0 cm. Spleen is mildly enlarged in caliber and measures 12.2 cm in craniocaudal dimension. No focal lesions. Pancreas: Obscured by bowel gas. The kidneys are normal in caliber; the right kidney measures 11.5 x 6.3 x 5.9 cm in its craniocaudal, AP, and transverse dimensions, and the left kidney measures 11.5 x 5.7 x 5.2 cm in its craniocaudal, AP, and transverse dimensions. There is normal renal cortical thickness, and cortical echogenicity. There is no renal calculus. There is no hydronephrosis. Aorta and inferior vena cava are obscured by bowel gas. IMPRESSION: Hepatosplenomegaly with hepatic steatosis. Gallstones with mild gallbladder wall thickening and minimal pericholecystic fluid. Recommend HIDA scan. /[place] ASSESSMENT: Possible cholecystitis pending a HIDA scan for confirmation. Leukocytosis. Abdominal pain. History of gastroesophageal reflux disease. PLAN: Continue cefepime. Continue vancomycin. Pending HIDA scan Radiology interpretation. Continue pain management. Continue GI prophylaxis. This case was reviewed and discussed with my supervising physician Dr. Christie and the above assessment and plan was formulated and agreed upon. ATTESTATION BY PHYSICIAN I have seen and examined the patient. I reviewed the documentation, medical decision making, and treatment plan as noted by the mid-level provider above. I agree with the findings and plan of care. [place] CHRISTIE MD, MIRTA L [facility] Jun 12, 2025 15:37
[2025-06-12 16:11] LABS: HEPATITIS A IGM ANTIBODY Non-Reactive (Nonreactive); HEPATITIS B CORE IGM ANTIBODY Non-Reactive (Negative)
--- NOTE | 2025-06-12 16:19 | NUR ---
NOTIFIED ROUNDED ON PATIENT AFTER AMELIA GALAVIZ REPORTED BP OF 163/126. GAVE PRN HYDRALAZINE AND INFORMED DR ESTES OF HIGH BP. DR ESTES PUT IN ORDERS TO GIVE CLONIDINE ONCE. SHE ALSO ASKED ME IF I GAVE THE LISINOPRIL SHE PRESCRIBED THIS MORNING. I INFORMED HER THAT SHE PUT IN THE ORDER FOR BID AND THAT SHE STARTED IT FOR RIGGING [employer]CH[employer]IC TODAY. SHE SAID CONTINUE TO MONITOR PATIENT AFTER PRN HYDRALAZINE AND ONE TIME DOSE OF CLONIDINE AND TO NOT DO ANY OTHER INTERVENTIONS. WILL CONTINUE TO MONITOR PATIENT BP/ CONDITION.
--- NOTE | 2025-06-12 17:28 | CONS ---
CONSULT NOTE: Consulting physician:Dr Joseph Consulting service: General surgery Reason for consultation: Cholecystitis History of present illness: This is a 44-year-old male consulted to surgery after initially presenting to the hospital with concerns abdominal pain with the upper quadrant discomfort and reflux. Patient initially hypertensive and tachycardic on presentation. Troponins negative. Upon initial workup by GI concerns for cholecystitis noted on HIDA scan ordered. At that point in time surgery consulted. Patient is seen in her room resting. No abdominal pain improving but patient remains hyp ertensive. HIDA scan has returned to consistent with cholecystitis. Patient currently NPO on IV fluids and IV antibiotics. WBCs trending down today 11.3 with a hemoglobin of 1 Medical history: Noncompliant hypertension Surgical history: Review of systems: General: No Fever, No Chills, No Night Sweats, No Fatigue, No Malaise, No Appetite, No Other HEENT: No Head Aches, No Visual Changes, No Eye Pain, No Ear Pain, No Dysphasia, No Sinus Congestion, No Post Nasal Drip, No Sore Throat, No Other Pulmonary: No Dyspnea, No Cough, No Pleuritic Chest Pain, No Other Cardiovascular: No: Chest Pain, Palpitations, Orthopnea, Paroxysmal No Dyspnea, Edema, Lt Headedness, Other Gastrointestinal: No: Nausea, Vomiting, Diarrhea, Constipation, Melena, Hematochezia, Other Genitourinary: No Dysuria, No Frequency, No Incontinence, No Hematuria, No Retention, No Other Musculoskeletal: No: other, neck pain, shoulder pain, arm pain, back pain, hand pain, leg pain, foot pain Skin: No Urticaria, No Rash, No Other Neurological: No: Weakness, Numbness, Incoordination, Change in speech, Confusion, Seizures, Other Physical exam: General: Awake alert and oriented Heart: Regular rate and rhythm} Lungs: Clear to auscultation no distress Abdomen: [Soft, nontender, nondistended Assessment: This is a 44-year-old male with concerns of acute cholecystitis confirmed with HIDA scan Plan: At this point in time patient will be scheduled for surgical intervention tomorrow with Dr. Banegas for laparoscopic robotic cholecystectomy possible open Patient made aware of plan and agrees Surgical team to follow patient closely nursing report any further acute events NPO status at midnight JACQUE MOTTA Jr. Jun 12, 2025 17:28
[2025-06-12] MEDS: LISINOPRIL 20 MG TABLET PO SCH (20:24)
--- NOTE | 2025-06-12 20:26 | NUR ---
JACQUE SANTILLAN ROUNDED ON PATIENT AND STATED THAT THEY WILL DO A POSSIBLE LAP JOSE FOR TOMORROW. HOWEVER, HE SAID HE WILL TALK TO DR. DIOP ABOUT THE PATIENT'S HIGH BP AND A POSSIBLE CARDIOLOGY CONSULT. HE STATED HE WILL INPUT ORDERS AFTER HE SPOKE TO HIS ATTENDING.
[2025-06-13] VITALS (28 sets, daily range): BP systolic 120–152; BP diastolic 72–104; PULSE 62–105; RESP 16–24; TEMP 97.7–98.4; O2SAT 97
[2025-06-13 05:02] LABS: NUCLEATED RED BLOOD CELLS 0.0 % (0.0-0.19); PLATELET COUNT (AUTO) 278.0 K/uL (130-400); RED BLOOD CELL COUNT(AUTO) 5.16 MIL/uL (4.50-6.20); RED CELL DISTRIBUTION WIDTH 13.5 % (11.0-15.5); WHITE BLOOD COUNT (AUTO) 7.5 K/uL (4.8-10.8)
[2025-06-13 05:25] LABS: CREATININE 0.9 mg/dL (0.5-1.3); GLOMERULAR FILTR. RATE CALC 107.0 mL/min (>90); GLUCOSE,RANDOM 130.0 mg/dL (70-105); SODIUM SERUM 134.0 mmol/L (136-145); UREA NITROGEN, BLOOD 15.0 mg/dL (7-18)
[2025-06-13] MEDS ORDERED: LIDOCAINE HCL 1% 20 ML VIAL ONE (14:09)
[2025-06-13] MEDS: INDOCYANINE GREEN 25 MG VIAL IJ ONE ×2 (14:12→14:30)
--- NOTE | 2025-06-13 14:20 | PN ---
INFECTIOUS DISEASE PROGRESS NOTE Date of Service: Jun 13, 2025 SUBJECTIVE: Patient was seen at bedside in room 409. Patient remains afebrile for the past 48 hours and the WBC has trended down to 7.5. Patient continues with abdominal pain and the HIDA scan confirmed Cholecystitis. Patient has been scheduled for cholecystectomy possible open for today. PHYSICAL EXAM EYES: Anicteric. Pupils equal and reactive. HENT: No oral thrush seen, moist Oral mucosa. NECK: Supple, no JVD or thyromegaly. LUNGS: Good air entry. No rales, no rhonchi. CARDIOVASCULAR: S1, S2 regular. No murmur heard. ABDOMEN: Soft, tender, bowel sounds present. Abdominal pain. CENTRAL NERVOUS SYSTEM: Awake, alert, oriented x 3. SKIN: No rashes, no swelling. LYMPHATICS: No peripheral lymphadenopathy. MUSCULOSKELETAL: No joint swelling, erythema or tenderness. EXTREMITIES: No cyanosis or clubbing. BACK: No deformity, no pressure ulcer. GENITOURINARY: No dysuria or hematuria. Vital Sign (Last 12 Hours) 06/13/25 06/13/25 06/13/25 04:00 08:00 11:36 Temp 98.2 98.4 98.2 Pulse 83 81 105 Resp 22 17 18 B/P (MAP) 141/92 144/100 137/104 Pulse Ox 97 97 96 O2 Delivery Room Air Room Air Room Air FiO2 21 21 LABS: Laboratory: Test 06/13/25 11:14 06/13/25 04:50 06/12/25 05:06 Range/Units Whole Blood Glucose 144 H 70-110 MG/DL White Blood Count 7.5 # 4.8-10.8 K/uL Red Blood Count 5.16 4.50-6.20 MIL/uL Hemoglobin 15.4 14.0-18.0 g/dL Hematocrit 43.6 42-54 % Mean Corpuscular Volume 84.5 79-99 fL Mean Corpuscular Hemoglobin 29.8 27.0-33.0 pg Mean Corpuscular Hemoglobin Concent 35.3 32.0-36.0 g/dL Red Cell Distribution Width 13.5 11.0-15.5 % Platelet Count 278 130-400 K/uL Mean Platelet Volume 9.1 7.5-10.5 fL Nucleated Red Blood Cells 0.0 0.0-0.19 % Sodium Level 134 L 136-145 mmol/L Potassium Level 3.3 L 3.5-5.1 mmol/L Chloride Level 99 L 101-111 mmol/L Carbon Dioxide Level 22 21-32 mmol/L Blood Urea Nitrogen 15 7-18 mg/dL Creatinine 0.9 0.5-1.3 mg/dL Glomerular Filtration Rate Calc 107 >90 mL/min Random Glucose 130 H 70-105 mg/dL Total Calcium 8.4 L 8.5-10.1 mg/dL Total Bilirubin 1.1 H 0.2-1.0 mg/dL Aspartate Amino Transf (AST/SGOT) 27 10-37 U/L Alanine Aminotransferase (ALT/SGPT) 47 12-78 U/L Alkaline Phosphatase 91 50-136 U/L Total Protein 7.1 6.0-8.3 g/dL Albumin 3.1 L 3.5-5.0 g/dL Vancomycin Level Trough 13.9 10.0-20.0 UG/ML DIAGNOSTICS / RADIOLOGY: PATIENT: ROGER DONG MR#: [id number] : 1980 SEX: M AGE: 44 LOCATION: [facility] ORDER 7 STATUS: ADM IN REPORT#: [id number] SERVICE 5 REASON: RUQ pain ORDERING PHYSICIAN: ANDREW ESTES MD PROCEDURE: HIDAWO - NM HIDA WO EF/CCK Examination Hepatobiliary study History RUQ pain Technique Tc-99m mebrofenin were administered intravenously followed by acquisition of planar images of the abdomen. Findings Following administration of radiotracer, there is prompt appearance of normal hepatic contours, followed by appearance of activity in unremarkable appearing bile ducts. There is nonvisualization of the gallbladder suggesting acute cholecystitis. IMPRESSION: 1. Nonvisualization of the gallbladder suggesting acute cholecystitis. /[place] DICTATED BY: ELLIOTT ANDRES Jr., MD DATE: 06/12/251615 ASSESSMENT: Acute cholecystitis on a HIDA scan. Leukocytosis. Abdominal pain. History of gastroesophageal reflux disease. PLAN: Scheduled for cholecystectomy possible open for today. Continue cefepime. Continue vancomycin. Continue pain management. Continue GI prophylaxis. This case was reviewed and discussed with my supervising physician Dr. Christie and the above assessment and plan was formulated and agreed upon. ATTESTATION BY PHYSICIAN I have seen and examined the patient. I reviewed the documentation, medical decision making, and treatment plan as noted by the mid-level provider above. I agree with the findings and plan of care. [place] CHRISTIE MD, MIRTA L [facility] Jun 13, 2025 14:20
[2025-06-13] MEDS ORDERED: FAMOTIDINE 20MG VIAL IV ONE (14:23)
[2025-06-13] MEDS ORDERED: GLYCOPYRROLATE 0.2 MG/ML 5 ML VIAL ONE (14:25)
[2025-06-13] MEDS ORDERED: LIDOCAINE PF 100MG/5ML (2%) SYRINGE 5ML ONE (14:25)
[2025-06-13] MEDS ORDERED: MIDAZOLAM HCL 1 MG/ML 2ML VIAL ONE (14:26)
[2025-06-13] MEDS ORDERED: SUCCINYLCHOLINE CHLORIDE 20 MG/ML 10 ML VIAL ONE (14:26)
--- NOTE | 2025-06-13 15:21 | PN ---
GASTROENTEROLOGY PROGRESS NOTE Date of Visit: Jun 13, 2025 Time of Visit: 15:18 Events / Notes: [ 06/12/25: WBC 11.3, hemoglobin 14.4, platelets 240.Chemistry significant for potassium of 3.4. Total bilirubin trending down to 1.1, AST, ALT alkaline phos and total protein are normal. Albumin 3.1. HIDA scan was completed yesterday but results are pending. Patient's blood pressure has been elevated and has been started on hydrochlorothiazide. On exam, patient reports feeling better and has less abdominal pain. Informed of pending HIDA scan results to determine next poc. Will continue to follow. 06/13/25: HIDA scan significant for unremarkable appearing bile ducts. Nonvisualization of the gallbladder suggesting acute cholecystitis. Review of Systems: CONSTITUTIONAL: No malaise or change in sensation of wellbeing. ENMT: No rhinorrhea, otorrhea, sinus pain, ear ache. CARDIOVASCULAR: No angina, palpitations, orthopnea or paroxysmal dyspnea. RESPIRATORY: No SOB. GASTROINTESTINAL: No abdominal pain, nausea, vomiting, diarrhea, hematemesis, melena or change in the patient's habitual bowel movements consistency/number. GENITOURINARY: No dysuria, hematuria or change in bladder continence. MUSCULOSKELETAL: No new muscle pain or decrease in muscular strength. No new joint swelling, redness or tenderness. SKIN: No new rash. Physical Exam: GEN: Awake, alert, oriented in person, time and place, and in no acute distress. HEENT No rhinorrhea. Oral pharyngeal mucosa is pink, moist and within normal limits. Neck is supple. CHEST: Inspection, palpation of the chest were unremarkable. Lung auscultation revealed normal breath sounds bilaterally. CARDIAC: PMI is within normal limits. Heart sounds are regular. ABD: Soft, non-tender and not distended. No peritoneal signs on palpation. No organomegaly. Normal bowel sounds. EXT: No cyanosis or clubbing. No edema. SKIN: Intact. No rashes. JOINTS: No evidence of synovitis or acute arthritis. NEURO: Alert and oriented to name, place and person. No focal motor deficits. Normal speech. Strength is normal. Vital Signs (last 8hr) Date Time Temp Pulse Resp B/P (MAP) Pulse Ox O2 Delivery O2 Flow Rate FiO2 06/13/25 14:20 97.7 90 16 146/102 99 Room Air 21 8/28/25 11:36 98.2 105 18 137/104 96 Room Air 21 06/13/25 08:00 98.4 81 17 144/100 97 Room Air 21 Laboratory: [ ] Laboratory: Test 06/13/25 11:14 06/13/25 04:50 06/12/25 05:06 Range/Units Whole Blood Glucose 144 H 70-110 MG/DL White Blood Count 7.5 # 4.8-10.8 K/uL Red Blood Count 5.16 4.50-6.20 MIL/uL Hemoglobin 15.4 14.0-18.0 g/dL Hematocrit 43.6 42-54 % Mean Corpuscular Volume 84.5 79-99 fL Mean Corpuscular Hemoglobin 29.8 27.0-33.0 pg Mean Corpuscular Hemoglobin Concent 35.3 32.0-36.0 g/dL Red Cell Distribution Width 13.5 11.0-15.5 % Platelet Count 278 130-400 K/uL Mean Platelet Volume 9.1 7.5-10.5 fL Nucleated Red Blood Cells 0.0 0.0-0.19 % Sodium Level 134 L 136-145 mmol/L Potassium Level 3.3 L 3.5-5.1 mmol/L Chloride Level 99 L 101-111 mmol/L Carbon Dioxide Level 22 21-32 mmol/L Blood Urea Nitrogen 15 7-18 mg/dL Creatinine 0.9 0.5-1.3 mg/dL Glomerular Filtration Rate Calc 107 >90 mL/min Random Glucose 130 H 70-105 mg/dL Total Calcium 8.4 L 8.5-10.1 mg/dL Total Bilirubin 1.1 H 0.2-1.0 mg/dL Aspartate Amino Transf (AST/SGOT) 27 10-37 U/L Alanine Aminotransferase (ALT/SGPT) 47 12-78 U/L Alkaline Phosphatase 91 50-136 U/L Total Protein 7.1 6.0-8.3 g/dL Albumin 3.1 L 3.5-5.0 g/dL Vancomycin Level Trough 13.9 10.0-20.0 UG/ML Current Medications Medications (Trade) Dose Ordered Sig/Oj Route PRN Reason Start Time Stop Time Status Last Admin Dose Admin Acetaminophen (TYLenol 325MG TAB) 650 mg Q4H PRN PO TEMPERATURE GREATER THAN 101.5 06/10/25 15:00 07/10/25 14:59 06/12/25 20:23 650 MG Amlodipine Besylate (NorvASC 5MG TAB) 5 mg DAILY PO 06/14/25 09:00 07/14/25 08:59 Cefepime HCl (MAXipime 2 gm vial) 2 gm Q12H IVPB 06/10/25 15:00 06/12/25 15:12 DC 06/12/25 03:25 2 GM Cefepime HCl (MAXipime 2 gm vial) 2 gm Q12H IVPB 06/12/25 21:00 06/22/25 20:59 06/13/25 10:27 2 GM Famotidine (Pepcid 20mg Vial) 20 mg BID IV 06/10/25 21:30 06/11/25 23:59 DC 06/11/25 20:26 20 MG Famotidine (Pepcid 20mg Tab) 20 mg BID PO 06/10/25 21:00 06/10/25 21:04 DC Hydralazine HCl (APRESOLine 20MG INJ) 10 mg ONCE IV 06/10/25 14:00 06/10/25 13:57 DC Hydralazine HCl (APRESOLine 20MG INJ) 10 mg Q4H PRN IV ADMINISTER FOR SBP > 160 06/10/25 15:00 07/10/25 14:59 06/12/25 15:18 10 MG Hydrochlorothiazide (hydroCHLOROthiazide 25MG) 25 mg DAILY PO 06/12/25 09:00 06/13/25 11:41 DC 06/13/25 10:27 25 MG Insulin Human Regular (humuLIN R 100 UNIT/ML 3ML) INSULIN SLIDING SCAL... ACHS SQ 06/10/25 16:30 07/10/25 16:29 06/10/25 17:19 4 UNIT Lactulose (Constulose 20gm/ 30ml Udcup) 20 gm BID PRN PO CONSTIPATION 06/10/25 15:00 07/10/25 14:59 Lisinopril (Prinivil 20mg) 20 mg BID PO 06/12/25 21:00 07/12/25 20:59 06/13/25 10:27 20 MG Magnesium Sulfate 50 ml @ 0 mls/hr PROTOCOL PRN IV low mag level 06/10/25 15:30 07/10/25 15:29 Morphine Sulfate (morPHINE 2MG SYG) 2 mg Q4H PRN IVP SEVERE PAIN (7-10) 06/10/25 16:00 06/17/25 15:59 Pantoprazole Sodium (PROTonix 40MG INJ) 40 mg DAILY IVP 06/12/25 09:00 07/12/25 08:59 06/13/25 10:27 40 MG Potassium Chloride 100 ml @ 100 mls/hr AD PRN IV POTASSIUM PROTOCOL 06/10/25 15:30 07/10/25 15:29 06/11/25 20:26 100 MLS/HR Potassium Chloride (K-Dur/Klor-Con 20meq) 20 meq AD PRN PO POTASSIUM PROTOCOL 06/10/25 15:30 07/10/25 15:29 06/10/25 16:26 20 MEQ Potassium Chloride (KCl 10% Elixir 20meq/15ml) 20 meq AD PRN PO POTASSIUM PROTOCOL 06/10/25 15:30 07/10/25 15:29 Sodium Chloride 1,000 ml @ 75 mls/hr [id number] IV 06/10/25 15:00 07/10/25 14:59 06/12/25 06:19 75 MLS/HR Vancomycin HCl 250 ml @ 125 mls/hr ONCE IV 06/10/25 15:30 06/10/25 21:30 DC 06/10/25 17:22 125 MLS/HR Vancomycin HCl (Vancomycin 1g/ 250ml Kit) 1 gm Q8H6 IV 06/11/25 06:00 06/21/25 05:59 06/13/25 13:52 1 GM Diagnostics / Radiology: [COPY/PASTE HERE IF NO REPORTS PLEASE DELETE SECTION] Assessment: Abdominal pain [ Hepatosplenomegaly Cholelithiasis Alcohol abuse] Plan: Case discussed with Dr. Whitt Recommend Gi prophylaxis with Protonix IV bid HIDA positive for acute cholecystitis Liver serologies ordered Will defer to surgery for recommendations. Patient can follow up as outpatient further evaluation of hepatic steatosis. Please call with questions, concerns, and change in clinical status. Thank you for this consult. ] NAVJOT CARLSON NP Jun 13, 2025 15:21
--- NOTE | 2025-06-13 16:09 | PN ---
[facility] PROGRESS NOTE Date of Service: Jun 13, 2025 Time of Service: 15:59 SUBJECTIVE: The patient is a 44-year-old male with a past medical history of GERD. The patient presented to the ER with complaint of right-sided chest and upper quadrant pain since 2 days, with increased in severity on 06/10. He rated pain as 10/10. According to the patient he was in usual state of health since Tuesday after which she developed Zaid new pain. The patient is severe abdominal pain on Tuesday and had multiple episodes of vomiting. On Tuesday,the patient complained of having shortness of breath and difficulty breathing along with severe right-sided chest and right upper quadrant pain after which, the patient was brought to the ER. On arrival, the patient had a temperature of 99.73 hours that later spiked 101.3, had tachycardia with HR 148 and blood pressure of 175/54. In ED, the patient received a total of 20 mg of hydralazine. Labs showed WBCs 23, CRP 147.8, pro calcitonin 1.26, sodium 134, potassium 3.4, Glucose 229, total bilirubin 1.8, direct bilirubin 0.5 and total protein 8.4. 06/11/2025: The patient was alert, awake, and oriented. He said that he was not having abdominal pain, chest pain or shortness of breath. The patient was afebrile but had a fever of 101.3 Yesterday, therefore, blood culture was ordered. Abdomen ultrasound showed hepatosplenomegaly with hepatic steatosis and gallbladder stones with mild wall thickening. HIDA scan was recommended and ordered. Meanwhile General surgery and Gastroenterology were consulted. Potassium was 3.3 and was replaced according to protocol. The patient was continued on vancomycin and cefepime and WBC showed a downward trend (23.2 > 13.9) Patient is on hypertension protocol and also started on hydrochlorothiazide due to his high blood pressure. Today his blood pressure is 171/120. 06/12/2025: he patient was alert, awake, and oriented. He said that he was not having abdominal pain, chest pain or shortness of breath. The patient has been afebrile. HIDA scan was performed yesterday and showed acute cholecystitis. General surgery is already consulted and we are awaiting their recommendation. Gastroenterology saw the patient ordered NEO, mitochondrial antibody, microsomal antibody, anti smooth muscle antibody, hepatitis panel, alpha 1 antitrypsin, and ceruloplasmin. He is continued on vancomycin and cefepime. Patient is on hypertension protocol and also started on hydrochlorothiazide due to his high blood pressure. Today his blood pressure is 150/89. Patient does not have established PCP and does not remember the last time he went to a doctor, therefore he does not know his previous blood pressure readings. He is given 1 dose of clonidine along with hydrochlorothiazide, hydralazine and lisinopril. 06/13/2025: The patient was alert, awake, and oriented. He said that he was not having abdominal pain, chest pain or shortness of breath. The patient has been afebrile. HIDA scan was performed yesterday and showed acute cholecystitis. General surgery was consulted and they planned cholecystectomy today. The patient was NPO for the surgery. The patient is continued on vancomycin and cefepime. Patient's blood pressure today was 141/92. Hydrochlorothiazide was stopped and amlodipine was started and lisinopril was continued. REVIEW OF SYSTEMS CONSTITUTIONAL: Denies fevers, chills, or night sweats. No unintentional weight loss reported. NEUROLOGICAL: Denies headache, amaurosis fugax, motor weakness, sensory deficit, vertigo/spinning sensation, gait abnormalities, or tremors. ENT: No hearing loss, otalgia, otorrhea, rhinitis, rhinorrhea, hoarseness, or sore throat. CARDIOVASCULAR: Denies any exertional angina, dyspnea on exertion, orthopnea, paroxysmal nocturnal dyspnea, palpitations, life-threatening arrhythmias, claudication. PULMONARY: Denies any shortness of breath, cough, phlegm/sputum, hemoptysis, pleuritic chest pain. SLEEP: Denies morning headaches, daytime somnolence or napping. Denies difficulty falling asleep, staying asleep, waking from sleep. Denies knowledge of snoring. GASTROINTESTINAL: History of GERD. Right upper quadrant pain. Episodes of vomiting on Tuesday. NPO GENITOURINARY: Denies frequency, urgency, nocturia, hematuria or incontinence (Storage/Irritative symptoms.) Low urinary stream, straining to void, urinary intermittency or hesitancy, splitting of the voiding stream, terminal dribbling. ENDOCRINOLOGIC: Denies polyuria, polydipsia, polyphagia or heat/cold intolerances. PHYSICAL EXAM GENERAL APPEARANCE: The patient is awake, alert, and oriented, in no acute cardiopulmonary distress. NEUROLOGICAL: Cranial nerves II-XII grossly intact. Motor is 5/5 in bilateral upper and lower extremities proximal to distal. No sensory deficits. HEENT: Face is symmetric. Pupils are equal and reactive. Extraocular movements are intact. NECK: Supple. No JVD. No thyromegaly. No submental, submandibular, pre- /postauricular, occipital or supraclavicular lymphadenopathy. CHEST: Normal chest expansion. No Telemetry. LUNGS: Absence of any rales, rhonchi or any wheezing. CARDIOVASCULAR: Regular. S1 and S2 normal. No appreciable rubs, murmurs or gallops. ABDOMEN: Soft, nontender, and distended. Slight pain in right upper quadrant : Deferred. No Uriarte. EXTREMITIES: Non-edematous and not cyanotic. No clubbing. Good capillary refill. SKIN: No skin breakdown. Vital Signs (last 8hr) Date Time Temp Pulse Resp B/P (MAP) Pulse Ox O2 Delivery O2 Flow Rate FiO2 06/13/25 14:20 97.7 90 16 146/102 99 Room Air 21 06/13/25 11:36 98.2 105 18 137/104 96 Room Air 21 06/13/25 08:00 98.4 81 17 144/100 97 Room Air 21 LABS: Laboratory: Test 06/13/25 11:14 06/13/25 04:50 06/12/25 05:06 Range/Units Whole Blood Glucose 144 H 70-110 MG/DL White Blood Count 7.5 # 4.8-10.8 K/uL Red Blood Count 5.16 4.50-6.20 MIL/uL Hemoglobin 15.4 14.0-18.0 g/dL Hematocrit 43.6 42-54 % Mean Corpuscular Volume 84.5 79-99 fL Mean Corpuscular Hemoglobin 29.8 27.0-33.0 pg Mean Corpuscular Hemoglobin Concent 35.3 32.0-36.0 g/dL Red Cell Distribution Width 13.5 11.0-15.5 % Platelet Count 278 130-400 K/uL Mean Platelet Volume 9.1 7.5-10.5 fL Nucleated Red Blood Cells 0.0 0.0-0.19 % Sodium Level 134 L 136-145 mmol/L Potassium Level 3.3 L 3.5-5.1 mmol/L Chloride Level 99 L 101-111 mmol/L Carbon Dioxide Level 22 21-32 mmol/L Blood Urea Nitrogen 15 7-18 mg/dL Creatinine 0.9 0.5-1.3 mg/dL Glomerular Filtration Rate Calc 107 >90 mL/min Random Glucose 130 H 70-105 mg/dL Total Calcium 8.4 L 8.5-10.1 mg/dL Total Bilirubin 1.1 H 0.2-1.0 mg/dL Aspartate Amino Transf (AST/SGOT) 27 10-37 U/L Alanine Aminotransferase (ALT/SGPT) 47 12-78 U/L Alkaline Phosphatase 91 50-136 U/L Total Protein 7.1 6.0-8.3 g/dL Albumin 3.1 L 3.5-5.0 g/dL Vancomycin Level Trough 13.9 10.0-20.0 UG/ML Current Medications Medications (Trade) Dose Ordered Sig/Oj Route PRN Reason Start Time Stop Time Status Last Admin Dose Admin Acetaminophen (TYLenol 325MG TAB) 650 mg Q4H PRN PO TEMPERATURE GREATER THAN 101.5 06/10/25 15:00 07/10/25 14:59 06/12/25 20:23 650 MG Amlodipine Besylate (NorvASC 5MG TAB) 5 mg DAILY PO 06/14/25 09:00 07/14/25 08:59 Cefepime HCl (MAXipime 2 gm vial) 2 gm Q12H IVPB 06/10/25 15:00 06/12/25 15:12 DC 06/12/25 03:25 2 GM Cefepime HCl (MAXipime 2 gm vial) 2 gm Q12H IVPB 06/12/25 21:00 06/22/25 20:59 06/13/25 10:27 2 GM Famotidine (Pepcid 20mg Vial) 20 mg BID IV 06/10/25 21:30 06/11/25 23:59 DC 06/11/25 20:26 20 MG Famotidine (Pepcid 20mg Tab) 20 mg BID PO 06/10/25 21:00 06/10/25 21:04 DC Hydralazine HCl (APRESOLine 20MG INJ) 10 mg ONCE IV 06/10/25 14:00 06/10/25 13:57 DC Hydralazine HCl (APRESOLine 20MG INJ) 10 mg Q4H PRN IV ADMINISTER FOR SBP > 160 06/10/25 15:00 07/10/25 14:59 06/12/25 15:18 10 MG Hydrochlorothiazide (hydroCHLOROthiazide 25MG) 25 mg DAILY PO 06/12/25 09:00 06/13/25 11:41 DC 06/13/25 10:27 25 MG Insulin Human Regular (humuLIN R 100 UNIT/ML 3ML) INSULIN SLIDING SCAL... ACHS SQ 06/10/25 16:30 07/10/25 16:29 06/10/25 17:19 4 UNIT Lactulose (Constulose 20gm/ 30ml Udcup) 20 gm BID PRN PO CONSTIPATION 06/10/25 15:00 07/10/25 14:59 Lisinopril (Prinivil 20mg) 20 mg BID PO 06/12/25 21:00 07/12/25 20:59 06/13/25 10:27 20 MG Magnesium Sulfate 50 ml @ 0 mls/hr PROTOCOL PRN IV low mag level 06/10/25 15:30 07/10/25 15:29 Morphine Sulfate (morPHINE 2MG SYG) 2 mg Q4H PRN IVP SEVERE PAIN (7-10) 06/10/25 16:00 06/17/25 15:59 Pantoprazole Sodium (PROTonix 40MG INJ) 40 mg DAILY IVP 06/12/25 09:00 07/12/25 08:59 06/13/25 10:27 40 MG Potassium Chloride 100 ml @ 100 mls/hr AD PRN IV POTASSIUM PROTOCOL 06/10/25 15:30 07/10/25 15:29 06/11/25 20:26 100 MLS/HR Potassium Chloride (K-Dur/Klor-Con 20meq) 20 meq AD PRN PO POTASSIUM PROTOCOL 06/10/25 15:30 07/10/25 15:29 06/10/25 16:26 20 MEQ Potassium Chloride (KCl 10% Elixir 20meq/15ml) 20 meq AD PRN PO POTASSIUM PROTOCOL 06/10/25 15:30 07/10/25 15:29 Sodium Chloride 1,000 ml @ 75 mls/hr [id number] IV 06/10/25 15:00 07/10/25 14:59 06/12/25 06:19 75 MLS/HR Vancomycin HCl 250 ml @ 125 mls/hr ONCE IV 06/10/25 15:30 06/10/25 21:30 DC 06/10/25 17:22 125 MLS/HR Vancomycin HCl (Vancomycin 1g/ 250ml Kit) 1 gm Q8H6 IV 06/11/25 06:00 06/21/25 05:59 06/13/25 13:52 1 GM DIAGNOSTICS / RADIOLOGY: PATIENT: ROGER DONG MR#: [id number] : 1980 SEX: M AGE: 44 LOCATION: H ORDER 7 STATUS: ADM IN REPORT#: [id number] SERVICE 5 REASON: RUQ pain ORDERING PHYSICIAN: ANDREW ESTES MD PROCEDURE: HIDAWO - NM HIDA WO EF/CCK Examination Hepatobiliary study History RUQ pain Technique Tc-99m mebrofenin were administered intravenously followed by acquisition of planar images of the abdomen. Findings Following administration of radiotracer, there is prompt appearance of normal hepatic contours, followed by appearance of activity in unremarkable appearing bile ducts. There is nonvisualization of the gallbladder suggesting acute cholecystitis. IMPRESSION: 1. Nonvisualization of the gallbladder suggesting acute cholecystitis. /Ebro DICTATED BY: ELLIOTT ANDRES Jr., MD DATE: 06/12/251615 ELECTRONICALLY SIGNED BY: ELLIOTT ANDRES Jr., MD DATE: 06/12/251615 ASSESSMENT: Acute respiratory failure with hypoxia requiring oxygen supplemental POA Sepsis ( temperature 101.3, leukocytosis 23.2 Tachycardia 148POA hypertensive urgency POA Atypical chest pain most likely musculoskeletal pain POA Elevated d dimer suspecting PE POA Intractable abdominal pain right upper quad POA Severe GERD electrolytes derangement: hypokalemia POA hyperglycemia POA Obesity BMI 35.8 POA Anxiety requiring diazepam POA PLAN: Acute respiratory failure with hypoxia requiring oxygen supplemental POA: Chest x-ray was nonsignificant for any pathology Maintaining oxygen and 95% on room air No complain of chest pain or shortness of breath We will keep monitoring Sepsis : Patient is afebrile, heart rate 83, respiratory rate 22 WBC downtrending to 7.5 Blood culture ordered. Awaiting results. No growth for 48 hrs Infectious disease consulted. Continue on vancomycin (day 3) and cefepime (day 2) Intractable abdominal pain right upper quad: Abdominal ultrasound showed hepatosplenomegaly with hepatic steatosis and gallbladder stones with mild wall thickening. HIDA scan ordered that came back positive for acute cholecystitis General surgery scheduled the patient for cholecystectomy. Gastroenterology consulted. Ordered NEO, mitochondrial antibody, microsomal antibody, anti smooth muscle antibody, hepatitis panel, alpha 1 antitrypsin, ceruloplasmin Patient started on Protonix 40 mg IV on GI recommendation Morphine 2 mg prn Elevated d dimer suspecting PE POA: D-dimer was 449 CT chest ordered that was negative for embolism Venous Doppler ultrasound showed no DVT Hypokalemia POA: Today potassium was 3.3 Replaced according to protocol Hypertensive urgency POA High diastolic and systolic pressure Started on hydralazine, hydrochlorothiazide and lisinopril . Given 1 dose of clonidine. Today hydrochlorothiazide was stopped and amlodipine was added Patient currently on amlodipine and lisinopril. Hydralazine p.r.n. Monitor blood pressure PHYSICIAN STATEMENT I was present with the resident during the History and Physical exam and I have reviewed the resident's note. This case was discussed with the resident and I agree with the history, physical exam and medical decision making as documented. Additions/exceptions/observations were directly added to the notes. Dhruv Joseph MD,ARIANNA Suh MD Jun 13, 2025 16:09
--- NOTE | 2025-06-13 16:38 | OP ---
Operative Note: DATE OF PROCEDURE: 06/13/25 SURGEON: MALINA DIOP DO ACTIVITY MANAGER: None ANESTHESIA: General ANESTHESIOLOGIST/MANAGER ENTERPRISE CONTENT MANAGEMENT: RENATO Mishra PREOPERATIVE DIAGNOSIS: Acute cholecystitis POSTOPERATIVE DIAGNOSIS: Acute cholecystitis SYNOPSIS: None PROCEDURE: Robotic assisted laparoscopic cholecystectomy ESTIMATED BLOOD LOSS: 30 cc INDICATIONS: This is a 44-year-old male that presented to the hospital for right upper quadrant abdominal pain. He had imaging indicating cholelithiasis. HIDA scan performed showed a nonfilling of the gallbladder consistent with acute cholecystitis. Patient was tender physical exam. I recommended robotic cholecystectomy. I discussed the procedure in detail with the patient. All q uestions were answered. The patient expressed understanding and agreement with the plan. DESCRIPTION OF PROCEDURE: Patient was placed on the operating table in the supine position with arms tucked. After adequate sedation the patient was intubated by anesthesia. Perioperative antibiotics were given. The patient's abdomen was prepped and draped in the usual sterile fashion. A transverse supraumbilical skin incision was made and dissection was carried down to the level of the fascia. The fascia was elevated with Terry clamps and incised. The peritoneum was entered bluntly and a 12 mm balloon Bains port was placed. The abdomen was insufflated and the patient tolerated insufflation well. A camera was inserted and all 4 quadrants of the abdomen were inspected. No apparent gross abnormality was seen as well as no evidence of inadvertent injury on entry. Three robotic ports were placed in the left and right upper quadrant under direct visualization. The patient was placed in head up and right side up position. The robot was docked. The gallbladder was grasped at its fundus and retracted cephalad. Thin adhesions to the duodenum were taken down bluntly. Once the Hernandez's pouch was visualized dissection was carried out around the hepatocystic triangle until a single ductal structure was seen exiting the tapering Hernandez's pouch. After critical view was achieved the cystic artery was serially clipped and ligated and the cystic duct was serially clipped and ligated. The gallbladder was removed from the fossa using electrocautery and placed in an Endo Catch bag for later retrieval. The liver was inspected for hemostasis. Small bleeding edges of the liver were cauterized. Once hemostasis was achieved the right upper quadrant was irrigated with sterile saline. The robot was undocked. The area was again checked and found to be hemostatic. The robotic ports were removed under direct visualization and found to be hemostatic. The gallbladder was removed and handed off for routine pathology. The fascia of the 12 mm port site was approximated using a single [id number] suture of 0 Vicryl. The port sites were irrigated with saline. The skin was approximated with 4-0 Monocryl in a subcuticular fashion. The wounds were dressed with Dermabond. All instrument, needle, and sponge counts were correct at the end of the procedure. The patient tolerated the procedure well. The patient was aroused from sedation, extubated, and transferred to the postanesthesia care unit in good condition. MALINA DIOP DO Jun 13, 2025 16:38
[2025-06-13] MEDS: MIDAZOLAM HCL 1 MG/ML 2ML VIAL ONE (16:58)
[2025-06-13] MEDS: SUGAMMADEX SODIUM 200 MG/2 ML VIAL IV ONE (17:47)
[2025-06-14 04:00] VITALS: BP 137/96; PULSE 81; RESP 20; TEMP 98.6
[2025-06-14 05:19] LABS: NUCLEATED RED BLOOD CELLS 0.0 % (0.0-0.19); PLATELET COUNT (AUTO) 320.0 K/uL (130-400); RED BLOOD CELL COUNT(AUTO) 4.92 MIL/uL (4.50-6.20); RED CELL DISTRIBUTION WIDTH 13.3 % (11.0-15.5); WHITE BLOOD COUNT (AUTO) 12.5 K/uL (4.8-10.8)
[2025-06-14 05:31] LABS: ASPARTATE AMINOTRANSFERASE 36.0 U/L (10-37); CREATININE 1.0 mg/dL (0.5-1.3); GLOMERULAR FILTR. RATE CALC 94.0 mL/min (>90); GLUCOSE,RANDOM 152.0 mg/dL (70-105); SODIUM SERUM 134.0 mmol/L (136-145); TOTAL PROTEIN, SERUM 7.3 g/dL (6.0-8.3); UREA NITROGEN, BLOOD 14.0 mg/dL (7-18); VANCOMYCIN TROUGH 21.8 UG/ML (10.0-20.0)
[2025-06-14 08:00] VITALS: BP 153/93; PULSE 83; RESP 16; TEMP 98.3; O2SAT 93
[2025-06-14] MEDS: amLODIPine 5 MG TAB PO SCH (08:38)
[2025-06-14] MEDS ORDERED: AMOX-426 PO (11:18)
[2025-06-14] MEDS ORDERED: LISI20TA24 PO (11:18)
[2025-06-14] MEDS ORDERED: AMLO-257 PO (11:18)
[2025-06-14 12:00] VITALS: BP 141/98; PULSE 96; RESP 16; TEMP 98.4
--- NOTE | 2025-06-14 12:04 | PN ---
INFECTIOUS DISEASE PROGRESS NOTE Date of Service: Jun 14, 2025 SUBJECTIVE: This 44 year old male patient is being seen today at bedside. He is awake, alert and oriented x3. No fever or chills. No nausea or vomiting. Patient is status post lap lucina. No distress. He is calm, he remains on antibiotics. No acute events over night reported by nurse. PHYSICAL EXAM EYES: Anicteric. Pupils equal and reactive. HENT: No oral thrush seen, moist Oral mucosa. NECK: Supple, no JVD or thyromegaly. LUNGS: Good air entry. No rales, no rhonchi. CARDIOVASCULAR: S1, S2 regular. No murmur heard. ABDOMEN: Soft, tender, bowel sounds present. CENTRAL NERVOUS SYSTEM: Awake, alert, oriented x 3. SKIN: No rashes, no swelling. LYMPHATICS: No peripheral lymphadenopathy. MUSCULOSKELETAL: No joint swelling, erythema or tenderness. EXTREMITIES: No cyanosis or clubbing. BACK: No deformity, no pressure ulcer. GENITOURINARY: No dysuria or hematuria. Vital Sign (Last 12 Hours) 06/14/25 06/14/25 06/14/25 04:00 08:00 08:00 Temp 98.6 98.2 Pulse 81 83 Resp 20 16 B/P (MAP) 137/96 153/93 Pulse Ox 95 93 93 O2 Delivery Room Air Room Air* Room Air O2 Flow Rate 0 FiO2 21 Intake & Output (last 24hrs) 06/13/25 06/13/25 06/14/25 15:00 23:00 07:00 Intake Total 200 ml Output Total 300 ml 650 ml Balance -100 ml -650 ml LABS: Laboratory: Test 06/14/25 11:36 06/14/25 04:59 Range/Units Whole Blood Glucose 144 H 70-110 MG/DL White Blood Count 12.5 H 4.8-10.8 K/uL Red Blood Count 4.92 4.50-6.20 MIL/uL Hemoglobin 14.6 14.0-18.0 g/dL Hematocrit 41.5 L 42-54 % Mean Corpuscular Volume 84.3 79-99 fL Mean Corpuscular Hemoglobin 29.7 27.0-33.0 pg Mean Corpuscular Hemoglobin Concent 35.2 32.0-36.0 g/dL Red Cell Distribution Width 13.3 11.0-15.5 % Platelet Count 320 130-400 K/uL Mean Platelet Volume 9.1 7.5-10.5 fL Nucleated Red Blood Cells 0.0 0.0-0.19 % Sodium Level 134 L 136-145 mmol/L Potassium Level 3.9 3.5-5.1 mmol/L Chloride Level 99 L 101-111 mmol/L Carbon Dioxide Level 24 21-32 mmol/L Blood Urea Nitrogen 14 7-18 mg/dL Creatinine 1.0 0.5-1.3 mg/dL Glomerular Filtration Rate Calc 94 >90 mL/min Random Glucose 152 H 70-105 mg/dL Total Calcium 8.9 8.5-10.1 mg/dL Total Bilirubin 0.9 0.2-1.0 mg/dL Direct Bilirubin 0.2 0.0-0.3 mg/dL Aspartate Amino Transf (AST/SGOT) 36 10-37 U/L Alanine Aminotransferase (ALT/SGPT) 55 12-78 U/L Alkaline Phosphatase 92 50-136 U/L Total Protein 7.3 6.0-8.3 g/dL Albumin 3.1 L 3.5-5.0 g/dL Vancomycin Level Trough 21.8 #H 10.0-20.0 UG/ML DIAGNOSTICS / RADIOLOGY: PATIENT: ROGER DONG MR#: [id number] : 1980 SEX: M AGE: 44 LOCATION: [facility] ORDER 7 STATUS: ADM IN REPORT#: [id number] SERVICE 5 REASON: RUQ pain ORDERING PHYSICIAN: ANDREW ESTES MD PROCEDURE: HIDAWO - NM HIDA WO EF/CCK Examination Hepatobiliary study History RUQ pain Technique Tc-99m mebrofenin were administered intravenously followed by acquisition of planar images of the abdomen. Findings Following administration of radiotracer, there is prompt appearance of normal hepatic contours, followed by appearance of activity in unremarkable appearing bile ducts. There is nonvisualization of the gallbladder suggesting acute cholecystitis. IMPRESSION: 1. Nonvisualization of the gallbladder suggesting acute cholecystitis. /[place] DICTATED BY: ELLIOTT ANDRES Jr., MD DATE: 06/12/25 1616 ASSESSMENT: Acute cholecystitis on a HIDA scan. Leukocytosis. Abdominal pain. History of gastroesophageal reflux disease. status post lap cholecystectomy PLAN: Continue cefepime. Continue vancomycin as per pharmacy protocol Continue pain management. Continue GI prophylaxis. This case was reviewed and discussed with my supervising physician Dr. Burroughs and the above assessment and plan was formulated and agreed upon. JALYN ABBOTT Jun 14, 2025 12:04
--- NOTE | 2025-06-14 13:00 | NUR ---
DISCHARGE PT sitting in bed w/ eyes open A&Ox4 able to make needs known denies pain or discomfort. Discharge instructions given verbally and written, PT verbally acknowledged understanding. IV removed intact w/o complications. Escorted to POV via WC by MEASUREMENT ADVISOR w/o complications.
--- NOTE | 2025-06-14 17:28 | DS ---
Discharge Summary Hospital Course Summary: Patient Information: *Name: Fady Dong *Date of : 1980 *Admission Date: 06/10/2025 *Discharge Date: 06/14/2025 Admitting Diagnosis: Sepsis Course in Hospital: The patient is a 44-year-old male with a past medical history of GERD. The patient presented to the ER with complaint of right-sided chest and upper quadrant pain since 2 days, with increased in severity on 06/10. He rated pain as 10/10. According to the patient he was in usual state of health since Tuesday after which she developed right upper quadrant pain. The patient had severe abdominal pain on Tuesday and had multiple episodes of vomiting. On Tuesday,the patient complained of having shortness of breath and difficulty breathing along with severe right-sided chest and right upper quadrant pain after which, the patient was brought to the ER. CT scan chest was done to rule out pulmonary embolism On arrival, the patient had a temperature of 99.73 hours that later spiked 101.3, had tachycardia with HR 148 and blood pressure of 175/54. In ED, the patient received a total of 20 mg of hydralazine. Labs showed WBCs 23, CRP 147.8, pro calcitonin 1.26, sodium 134, potassium 3.4, Glucose 229, total bilirubin 1.8, direct bilirubin 0.5 and total protein 8.4. Blood culture was ordered that showed no growth. Abdomen ultrasound showed hepatosplenomegaly with hepatic steatosis and gallbladder stones with mild wall thickening. HIDA scan showed acute cholecystitis. The patient was continued on vancomycin and cefepime and WBC showed a downward trend. Gastroenterology saw the patient and ordered NEO, mitochondrial antibody, microsomal antibody, anti smooth muscle antibody, hepatitis panel, alpha 1 antitrypsin, and ceruloplasmin. General surgery saw the patient and planned him for cholecystectomy which was performed on 06/13/2025. During the course of hospitalization, the patient's systolic and diastolic blood pressure were raised. The patient did not not have established PCP and did not remember the last time he went to a doctor, therefore he didn't know his previous blood pressure readings. He was kept on hypertension protocol and also started on hydrochlorothiazide. After this his blood pressure was still not controlled therefore he was given given 1 dose of clonidine along with hydrochlorothiazide, hydralazine and lisinopril. Later on hydrochlorothiazide was stopped and amlodipine was started and lisinopril was continued. After these interventions the patient's blood pressure was reduced. On discharge the patient's blood pressure was 141/98. 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 Whitt NPO Recommend Gi prophylaxis with Protonix IV bid HIDA scan pending Liver serologies ordered Please call with questions, concerns, and change in clinical status. Thank you for this consult. General surgery Plan: At this point in time patient will be scheduled for surgical intervention tomorrow with Dr. Banegas for laparoscopic robotic cholecystectomy possible open Patient made aware of plan and agrees Surgical team to follow patient closely nursing report any further acute events NPO status at midnight Procedure(s): PATIENT: FADY DONG MR#: [id number] : 1980 SEX: M AGE: 44 LOCATION: [facility] ORDER 24 STATUS: REG REPORT#: [id number] SERVICE 1025 REASON: cp ORDERING PHYSICIAN: BERNARDA RAY MD PROCEDURE: CXR1VW - CHEST 1VW EXAM: CR Chest, 1 View. CLINICAL HISTORY: cp COMPARISON: None provided. FINDINGS: LUNGS: There is no mass, infiltrate, or acute pulmonary abnormality. Mild bibasilar atelectasis. PLEURAL SPACES: No pleural effusion or pneumothorax. MEDIASTINUM: Cardiac size and mediastinal contours within normal limits. BONES: No aggressive appearing osseous lesion seen. IMPRESSION: No acute cardiopulmonary pathology is evident. /[place] DICTATED BY: ELLIOTT ANDRES Jr., MD DATE: 06/10/25 1311 ELECTRONICALLY SIGNED BY: ELLIOTT ANDRES Jr., MD DATE: 06/10/251310 PATIENT: FADY DONG MR#: [id number] : 1980 SEX: M AGE: 44 LOCATION: [facility] ORDER 12 STATUS: ADM IN REPORT#: [id number] SERVICE 11 REASON: PE ORDERING PHYSICIAN: DIANA MARTIN NP PROCEDURE: CHES PE - CT CHEST PE PROTOCOL WWO CONT ADDENDUM REPORT ADDENDUM: Results were shared by telephone at 17:35 pm on 06/10/25 and acknowledged by Charge Nurse Ms.Josselyn Marie. /[place] EXAM: CTA Chest with and without Intravenous Contrast for PE evaluation CLINICAL HISTORY: PE TECHNIQUE: Axial CTA images of the chest with and without intravenous contrast using a pulmonary embolism protocol. Multiplanar reconstructed images were created and reviewed. CONTRAST: None. was administered without incident. COMPARISON: None provided. FINDINGS: PULMONARY ARTERIES: Suboptimal bolus. No evidence of central embolism AORTA: There is no evidence for aneurysm or dissection of the thoracic aorta. LUNGS: Findings suggesting pulmonary venous congestion. Increased central alveolar markings with interlobular septal prominence. No consolidation PLEURAL SPACES: No pleural effusion seen. No pneumothorax evident. HEART: Normal heart size. No significant pericardial effusion. LYMPH NODES: No lymphadenopathy is evident. BONES: No focal osseous abnormality or acute fracture. UPPER ABDOMEN: Gallstones with inflammatory gallbladder changes. Right upper quadrant ultrasound recommended IMPRESSION: 1. Suboptimal bolus. No evidence of central embolism 2. Findings suggesting pulmonary venous congestion 3. Gallstones with inflammatory gallbladder changes. Right upper quadrant ultrasound recommended /[place] DICTATED BY: TUCKER SCHROEDER MD DATE: 06/10/25 1744 ELECTRONICALLY SIGNED BY: DATE: EXAM: CTA Chest with and without Intravenous Contrast for PE evaluation CLINICAL HISTORY: PE TECHNIQUE: Axial CTA images of the chest with and without intravenous contrast using a pulmonary embolism protocol. Multiplanar reconstructed images were created and reviewed. CONTRAST: None. was administered without incident. COMPARISON: None provided. FINDINGS: PULMONARY ARTERIES: Suboptimal bolus. No evidence of central embolism AORTA: There is no evidence for aneurysm or dissection of the thoracic aorta. LUNGS: Findings suggesting pulmonary venous congestion. Increased central alveolar markings with interlobular septal prominence. No consolidation PLEURAL SPACES: No pleural effusion seen. No pneumothorax evident. HEART: Normal heart size. No significant pericardial effusion. LYMPH NODES: No lymphadenopathy is evident. BONES: No focal osseous abnormality or acute fracture. UPPER ABDOMEN: Gallstones with inflammatory gallbladder changes. Right upper quadrant ultrasound recommended IMPRESSION: 1. Suboptimal bolus. No evidence of central embolism 2. Findings suggesting pulmonary venous congestion 3. Gallstones with inflammatory gallbladder changes. Right upper quadrant ultrasound recommended /[place] DICTATED BY: TUCKER SCHROEDER MD DATE: 06/10/251727 ELECTRONICALLY SIGNED BY: TUCKER SCHROEDER MD DATE: 06/10/251727 PATIENT: FADY DONG MR#: [id number] : 1980 SEX: M AGE: 44 LOCATION: [facility] ORDER 1553 STATUS: ADM IN REPORT#: [id number] SERVICE 155 REASON: right upper quad pain ORDERING PHYSICIAN: DIANA MARTIN NP PROCEDURE: ABDOMEN - US ABDOMINAL COMPLETE EXAMINATION: ULTRASOUND OF THE ABDOMEN WITH COLOR DOPPLER. CLINICAL HISTORY: Right upper quadrant pain. COMPARISON: None provided. TECHNIQUE: Real-time grayscale ultrasound images of the abdomen. In addition, color Doppler is medically necessary to perform in order to evaluate vascularity and blood flow. FINDINGS: Study limited by bowel gas. Liver: Enlarged in caliber; the right hepatic lobe measures 18.3 cm in the craniocaudal dimension. There is increased echogenicity of the hepatic parenchyma. There is no focal hepatic abnormality or intrahepatic biliary ductal dilatation. There is normal spectral Doppler of the main portal vein (PSV-22 cm/s). Gallbladder: Wall thickened (0.5 cm). No hyperemia. There is trace pericholecystic free fluid. There are few calculi largest measure 1.0 cm. There is sludge. Common bile duct is normal in caliber, measuring 0.0 cm. Spleen is mildly enlarged in caliber and measures 12.2 cm in craniocaudal dimension. No focal lesions. Pancreas: Obscured by bowel gas. The kidneys are normal in caliber; the right kidney measures 11.5 x 6.3 x 5.9 cm in its craniocaudal, AP, and transverse dimensions, and the left kidney measures 11.5 x 5.7 x 5.2 cm in its craniocaudal, AP, and transverse dimensions. There is normal renal cortical thickness, and cortical echogenicity. There is no renal calculus. There is no hydronephrosis. Aorta and inferior vena cava are obscured by bowel gas. IMPRESSION: Hepatosplenomegaly with hepatic steatosis. Gallstones with mild gallbladder wall thickening and minimal pericholecystic fluid. Recommend HIDA scan. /[place] DICTATED BY: FESTUS BERNAL MD DATE: 06/11/25754 ELECTRONICALLY SIGNED BY: FESTUS BERNAL MD DATE: 06/11/25754 PATIENT: FADY DONG MR#: [id number] : 1980 SEX: M AGE: 44 LOCATION: [facility] ORDER 55 STATUS: ADM IN REPORT#: [id number] SERVICE 54 REASON: dvt ORDERING PHYSICIAN: DIANA MARTIN NP PROCEDURE: VENOUS CHECO - US VENOUS DOPPLER BILATERAL EXAMINATION: SPECTRAL DOPPLER ULTRASOUND EXAMINATION OF THE BILATERAL LOWER EXTREMITY VEINS. CLINICAL HISTORY: DVT. COMPARISON: None provided. TECHNIQUE: Real-time ultrasound scan of the veins of the bilateral lower extremity with color Doppler flow, spectral waveform analysis and compression. FINDINGS: DEEP VEINS: The common femoral, superficial femoral, deep femoral, popliteal, and posterior tibial veins are echolucent and compressible. There is normal color Doppler flow throughout. The visualized calf veins appear patent. SUPERFICIAL VEINS: The visualized greater saphenous veins are echolucent and compressible. SOFT TISSUES: No popliteal fossa cyst or other abnormalities. IMPRESSION: No deep venous thrombosis evident in the bilateral lower extremity examination. /[place] DICTATED BY: FESTUS BERNAL MD DATE: 06/11/25754 ELECTRONICALLY SIGNED BY: FESTUS BERNAL MD DATE: 06/11/25754 PATIENT: FADY DONG MR#: [id number] : 1980 SEX: M AGE: 44 LOCATION: [facility] ORDER 7 STATUS: ADM IN REPORT#: [id number] SERVICE 5 REASON: RUQ pain ORDERING PHYSICIAN: ANDREW ESTES MD PROCEDURE: HIDAWO - NM HIDA WO EF/CCK Examination Hepatobiliary study History RUQ pain Technique Tc-99m mebrofenin were administered intravenously followed by acquisition of planar images of the abdomen. Findings Following administration of radiotracer, there is prompt appearance of normal hepatic contours, followed by appearance of activity in unremarkable appearing bile ducts. There is nonvisualization of the gallbladder suggesting acute cholecystitis. IMPRESSION: 1. Nonvisualization of the gallbladder suggesting acute cholecystitis. /[place] DICTATED BY: ELLIOTT ANDRES Jr., MD DATE: 06/12/251615 ELECTRONICALLY SIGNED BY: ELLIOTT ANDRES Jr., MD DATE: 06/12/251615 Cholecystectomy DESCRIPTION OF PROCEDURE: Patient was placed on the operating table in the rubio pine position with arms tucked. After adequate sedation the patient was intubated by anesthesia. Perioperative antibiotics were given. The patient's abdomen was prepped and draped in the usual sterile fashion. A transverse supraumbilical skin incision was made and dissection was carried down to the level of the fascia. The fascia was elevated with Terry clamps and incised. T he peritoneum was entered bluntly and a 12 mm balloon Bains port was placed. The abdomen was insufflated and the patient tolerated insufflation well. A camera was inserted and all 4 quadrants of the abdomen were inspected. No apparent gross abnormality was seen as well as no evidence of inadvertent injury on entry. Three robotic ports were placed in the left and right upper quadrant under direct visualization. The patient was placed in head up and right side up position. The robot was docked. The gallbladder was grasped at its fundus and retracted cephalad. Thin adhesions to the duodenum were taken down bluntly. Once the Hernandez's pouch was visualized dissection was carried out around the hepatocystic triangle until a single ductal structure was seen exiting the tapering Hernandez's pouch. After critical view was achieved the cystic artery was serially clipped and ligated and the cystic duct was serially clipped and ligated. The gallbladder was removed from the fossa using electrocautery and placed in an Endo Catch bag for later retrieval. The liver was inspected for hemostasis. Small bleeding edges of the liver were cauterized. Once hemostasis was achieved the right upper quadrant was irrigated with sterile saline. The robot was undocked. The area was again checked and found to be hemostatic. The robotic ports were removed under direct visualization and found to be hem ostatic. The gallbladder was removed and handed off for routine pathology. The fascia of the 12 mm port site was approximated using a single [id number] suture of 0 Vicryl. The port sites were irrigated with saline. The skin was approximated with 4-0 Monocryl in a subcuticular fashion. The wounds were dressed with Dermabond. All instrument, needle, and sponge counts were correct at the end of the procedure. The patient tolerated the procedure well. The patient was aroused from sedation, extubated, and transferred to the postanesthesia care unit in good condition. Assessment/Plan: ASSESSMENT: Acute respiratory failure with hypoxia requiring oxygen supplemental POA Sepsis ( temperature 101.3, leukocytosis 23.2 Tachycardia 148POA hypertensive urgency POA Atypical chest pain most likely musculoskeletal pain POA Elevated d dimer suspecting PE POA Intractable abdominal pain right upper quad POA Severe GERD electrolytes derangement: hypokalemia POA hyperglycemia POA Obesity BMI 35.8 POA Anxiety requiring diazepam POA Discharge Instructions: *Follow up with your primary care physician in 2 - 3 days after discharge. *Continue all medications as prescribed. Do not discontinue or change dosages without consulting your PCP. *Gradually resume normal activities as tolerated. *Continue a balanced diet . Reduce salt intake to help manage BP. *Seek immediate medical attention if you experience chest pain, SOB or severe headache. Home Medications: Active Scripts Amoxicillin/Potassium Clav (Augmentin 500-125 Tablet) 500 Mg-125 Mg Tablet, 1 TAB PO BID for 10 Days, #20 TAB 0 Refills Prov:ARIANNA CID MD 06/14/25 Lisinopril (Lisinopril) 20 Mg Tablet, 1 TAB PO BID for 30 Days, #30 TAB 0 Refills Prov:ARIANNA CID MD 06/14/25 Amlodipine Besylate (Amlodipine Besylate) 5 Mg Tablet, 1 TAB PO DAILY for 30 Days, #30 TAB 0 Refills Prov:ARIANNA CID MD 06/14/25 New Medications: Amlodipine Besylate (Amlodipine Besylate) 5 Mg Tablet 1 TAB PO DAILY for 30 Days, #30 TAB 0 Refills Amoxicillin/Potassium Clav (Augmentin 500-125 Tablet) 500 Mg-125 Mg Tablet 1 TAB PO BID for 10 Days, #20 TAB 0 Refills Lisinopril (Lisinopril) 20 Mg Tablet 1 TAB PO BID for 30 Days, #30 TAB 0 Refills Time spent arranging discharge: 1-30 minutes PHYSICIAN STATEMENT I was present with the resident during the History and Physical exam and I have reviewed the resident's note. This case was discussed with the resident and I agree with the history, physical exam and medical decision making as documented. Additions/exceptions/observations were directly added to the notes. Dhruv Joseph MD, SYED M MD Jun 14, 2025 17:28
[2025-06-15] MEDS ORDERED: VANCOMYCIN 1G/250ML KIT 250 ML IV SCH (07:00)
[2025-06-17 19:11] LABS: ALPHA-1-ANTITRYPSIN 233 mg/dL (101-187)
== END 2025-06-14 13:00 | disposition home or self-care (01) | DRG 853 ==
LOC: EDH 10:23 → EDHIP 10:24 → 4BH 21:35
PROVIDERS: ADMIT Internal Medicine; ATTEND Internal Medicine
PROC: 8E0W4CZ Robotic Assisted Procedure of Trunk Region, Percutaneous Endoscopic Approach (ICD-10-PCS; 2025-06-13)
PROC: 0FT44ZZ Resection of Gallbladder, Percutaneous Endoscopic Approach (ICD-10-PCS; principal; 2025-06-13 14:30)
DX: A41.9 Sepsis, unspecified organism (principal); J96.01 Acute respiratory failure with hypoxia; K80.00 Calculus of gallbladder with acute cholecystitis without obstruction; I16.0 Hypertensive urgency; E66.9 Obesity, unspecified; E87.6 Hypokalemia; F41.9 Anxiety disorder, unspecified; I10 Essential (primary) hypertension; K76.0 Fatty (change of) liver, not elsewhere classified; K66.0 Peritoneal adhesions (postprocedural) (postinfection); F10.10 Alcohol abuse, uncomplicated; K21.9 Gastro-esophageal reflux disease without esophagitis; Z86.718 Personal history of other venous thrombosis and embolism; Z91.199 Patient's noncompliance with other medical treatment and regimen due to unspecified reason; Z68.35 Body mass index [BMI] 35.0-35.9, adult
CPT/HCPCS: 36415; 71045; 71270; 76700; 78226; 80048; 80053; 80061; 80074; 80076; 80202; 80305; 81001; 82103; 82104; 82390; 82948; 83036; 83605; 83735; 83880; 84145; 84443; 84484; 85025; 85027; 85378; 85610; 85730; 86015; 86038; 86140; 86215; 86235; 86376; 86381; 87040; 87426; 87804; 87880; 88304; 93005; 93970; 96361; 96374; 96375; 99291; A9537; G0378; J0330; J0360; J0692; J0696; J1100; J1815; J2003; J2250; J2270; J2371; J2405; J2470; J2704; J2795; J3010; J3360; J3373; J3480; J3490; J7030; Q9967; A4216; A4222; A4223; A4663; A4930; C1769; J0665; J3370